=== PATIENT | female | born 1935 | race Caucasian/White ===

== ENCOUNTER 2017-02-24 18:33 | Inpatient (IN) | payer MEDICARE, MEDICAID ==
[~2017-02-24] VITALS: Ht 157.5 cm; Wt 48.5 kg
[2017-02-24 19:38] LABS: BASO # 0.1 x10^3/uL (0.0-0.2); BASO % 1 % (0-3); EOS # 0.2 x10^3/uL (0.0-0.7); EOS % 2 % (0-3); HEMATOCRIT 38.3 % (36.0-47.0); LYMPH # 3.8 x10^3/uL (1.0-4.8); LYMPH % 45 % (24-48); MEAN CORPUSCULAR HEMOGLOBIN 29 pg (25-35); MEAN CORPUSCULAR HGB CONC 34 g/dL (31-37); MEAN CORPUSCULAR VOLUME 86 fL (79-100); MONO # 0.8 x10^3/uL (0.0-1.1); MONO % 10 % (0-9); NEUT # 3.7 x10^3uL (1.8-7.7); NEUT % 43 % (31-73); PLATELET COUNT 223 x10^3/uL (140-400); RED BLOOD COUNT 4.47 x10^6/uL (3.50-5.40); RED CELL DISTRIBUTION WIDTH 12.8 % (11.5-14.5); WHITE BLOOD COUNT 8.5 x10^3/uL (4.0-11.0)
[2017-02-24 19:48] LABS: CALCIUM 8.6 mg/dL (8.5-10.1); CREATININE 1.1 mg/dL (0.6-1.0); GFR 47.7; MAGNESIUM 2.1 mg/dL (1.8-2.4); POTASSIUM 3.5 mmol/L (3.5-5.1)
--- NOTE | 2017-02-24 19:49 | PHYS DOC ---
Adult General Chief Complaint Chief Complaint: PSYCH EVALUATION HPI HPI Patient is a 81 year old female who presents for geropsychiatric evaluation. The patient was transferred to the emergency department from her assisted due to increasing confusion. Patient has history of vascular dementia and COPD. The patient has no complaints at this time. The patient is currently oriented only to herself. Patient has had no reports of fever, vomiting, difficulty with breathing, chest pain, or loose stools. The patient was transferred here for medical clearance before admission to the geropsychiatric unit here at [facility]. Review of Systems Review of Systems Constitutional: Denies fever or chills [] Eyes: Denies change in visual acuity, redness, or eye pain [] HENT: Denies nasal congestion or sore throat [] Respiratory: Denies cough or shortness of breath [] Cardiovascular: Denies chest pain or edema [] GI: Denies abdominal pain, nausea, vomiting, bloody stools or diarrhea [] : Denies dysuria or hematuria [] Musculoskeletal: Denies back pain or joint pain [] Integument: Denies rash or skin lesions [] Neurologic: Denies headache, focal weakness or sensory changes [] Physical Exam Physical Exam Constitutional: Alert, afebrile, no acute distress. [] HENT: Normocephalic, atraumatic, bilateral external ears normal, oropharynx moist, no oral exudates, nose normal. [] Eyes: PERRLA, EOMI, conjunctiva normal, no discharge. [] Neck: Normal range of motion, no tenderness, supple, no stridor. [] Cardiovascular:Heart rate regular rhythm, no murmur [] Lungs & Thorax: Bilateral breath sounds clear to auscultation [] Abdomen: Bowel sounds normal, soft, no tenderness, no masses, no pulsatile masses. [] Skin: Warm, dry, no erythema, no rash. [] Back: No tenderness, no CVA tenderness. [] Extremities: No tenderness, no cyanosis, no clubbing, ROM intact, no edema. [] Neurologic: Alert, oriented to self only, normal motor function, normal sensory function, no focal deficits noted. [] Current Patient Data Lab Results Laboratory Tests Test 02/24/17 19:25 White Blood Count 8.5 x10^3/uL (4.0-11.0) Red Blood Count 4.47 x10^6/uL (3.50-5.40) Hemoglobin 13.0 g/dL (12.0-15.5) Hematocrit 38.3 % (36.0-47.0) Mean Corpuscular Volume 86 fL (79-100) Mean Corpuscular Hemoglobin 29 pg (25-35) Mean Corpuscular Hemoglobin Concent 34 g/dL (31-37) Red Cell Distribution Width 12.8 % (11.5-14.5) Platelet Count 223 x10^3/uL (140-400) Neutrophils (%) (Auto) 43 % (31-73) Lymphocytes (%) (Auto) 45 % (24-48) Monocytes (%) (Auto) 10 % (0-9) H Eosinophils (%) (Auto) 2 % (0-3) Basophils (%) (Auto) 1 % (0-3) Neutrophils # (Auto) 3.7 x10^3uL (1.8-7.7) Lymphocytes # (Auto) 3.8 x10^3/uL (1.0-4.8) Monocytes # (Auto) 0.8 x10^3/uL (0.0-1.1) Eosinophils # (Auto) 0.2 x10^3/uL (0.0-0.7) Basophils # (Auto) 0.1 x10^3/uL (0.0-0.2) EKG EKG Interpreted by me: Heart rate 91, sinus rhythm, normal intervals, leftward axis , no acute ST/T-wave abnormalities present [] Radiology/Procedures Radiology/Procedures Not performed [] Course & Med Decision Making Course & Med Decision Making Pertinent Labs and Imaging studies reviewed. (See chart for details) Patient's lab work shows evidence of mild dehydration, however is otherwise unremarkable. The patient is medically cleared for geropsychiatric admission. Dragon Disclaimer Dragon Disclaimer This chart was dictated in whole or in part using Voice Recognition software in a busy, high-work load, and often noisy Emergency Department environment. It may contain unintended and wholly unrecognized errors or omissions. Departure Departure: Impression: Primary Impression: Medical clearance for psychiatric admission Disposition: ADMITTED INPATIENT Admitting Physician: Other Condition: STABLE MARY HELTON MD Feb 24, 2017 19:49
[2017-02-24 20:19] LABS: BILIRUBIN,URINE NEG (NEG); CLARITY,URINE HAZY; COLOR,URINE YELLOW; GLUCOSE,URINE NEG (NEG)
[2017-02-24 20:20] LABS: BACTERIA,URINE 0 /HPF (0-FEW); NITRITE,URINE NEG (NEG); SQUAMOUS EPITHELIAL CELL,UR FEW /LPF; UROBILINOGEN,URINE 0.2 mg/dL (0.2 mg/dL)
[2017-02-24 20:22] LABS: HYALINE CASTS, URINE FEW /HPF
[2017-02-24] MEDS ORDERED: PREN1TAB27 PO (22:16)
[2017-02-24] MEDS ORDERED: SERT25TA PO (22:16)
[2017-02-24] MEDS ORDERED: OLAN5TAB3 PO (22:16)
[2017-02-24] MEDS ORDERED: DONE5TAB56 PO (22:16)
[2017-02-24] MEDS ORDERED: ACET325T9 PO (22:16)
[2017-02-24] MEDS ORDERED: MAG HYDROX/AL HYDROX/SIMETH 30 ML ORAL.SUSP PO PRN (22:30)
[2017-02-24] MEDS ORDERED: MAGNESIUM HYDROXIDE 2,400 MG/30 ML ORAL.SUSP. PO PRN (22:30)
[2017-02-24] MEDS ORDERED: ACETAMINOPHEN 325 MG TABLET PO PRN ×2 (22:30→23:45)
[2017-02-24] MEDS ORDERED: METHYL SALICYLATE/MENTHOL TOPICAL OINTMENT 29GM TUBE. TP PRN (22:30)
--- NOTE | 2017-02-24 22:46 | EKG ---
[address] [address] Test Date: 2017-02-24 Test Time: 19:05:35 Pat Name: SU SANDHU Department: Room: [facility] 1 Gender: F Bench Hand: : 1935 Requested By: MARY HELTON Order Number: [id number] Reading MD: Doroteo Sanders Measurements Intervals [place] Rate: 91 P: 38 AK: 132 QRS: -13 QRSD: 84 T: 82 QT: 390 QTc: 488 Interpretive Statements SINUS RHYTHM LEFTWARD AXIS LVH WITH REPOLARIZATION ABNORMALITY NONSPECIFIC ST-T WAVE CHANGES. PROLONGED QT RI6.01 Unconfirmed report No previous ECG available for comparison Electronically Signed On 02-28-2017 10:40:36 CDT by Doroteo Sanders
[2017-02-24] MEDS: OLANZapine 5 MG TABLET PO SCH (22:48)
[2017-02-24] MEDS: SERTRALINE 25 MG TABLET. PO SCH (22:48)
[2017-02-25 01:29] VITALS: BP 150/80
[2017-02-25 06:21] VITALS: BP 148/78
[2017-02-25] MEDS: DONEPEZIL HCL 5 MG TABLET. PO SCH (07:39)
[2017-02-25] MEDS: PRENATAL MULTIVITAMIN TABLET. PO SCH (07:39)
[2017-02-25 12:11] LABS: THYROID STIM HORMONE (TSH) 3.79 uIU/mL (0.358-3.740)
[2017-02-25 16:31] VITALS: BP 128/72
[2017-02-25] MEDS: SERTRALINE 25 MG TABLET. PO SCH (19:36)
[2017-02-25] MEDS: MIRTAZAPINE 7.5 MG TABLET. PO SCH (19:36)
[2017-02-25] MEDS: OLANZapine 5 MG TABLET PO SCH (19:36)
--- NOTE | 2017-02-25 20:03 | HP ---
ADMIT DATE: 02/24/2017 PSYCHIATRIC ADMISSION HISTORY/EVALUATION IDENTIFYING DATA: The patient is an 81-year-old female referred to us from [facility] by Dr. Jd Donovan, her primary care physician, on account of increasing psychotic symptoms, being delusional, aggressive after the patient grabbed a staff member. She has been increasingly anxious, obsessive, does have a diagnosis of vascular dementia with behavioral disturbances, refusing all her psychotropics. She has had outburst attempted to elopement, she grabbed ____ and attempted to attack staff with it. She has failed outpatient psychiatric interventions. CHIEF COMPLAINT: "No, I don't do that." HISTORY OF PRESENT ILLNESS: The patient has a history of increasing psychotic symptoms, confusion, mood swings. She does have a diagnosis of vascular dementia. No clear history of bipolar disorder or active suicidal ideation. She is extremely obsessive, repetitive. PAST PSYCHIATRIC HISTORY: As above. MEDICAL HISTORY: Hypertension, COPD. FAMILY HISTORY: Noncontributory. DIET: Regular. No milk. CODE STATUS: Full code. Ambulates independently. CURRENT PSYCHOTROPICS: Aricept 5 mg a day, Zyprexa 5 mg at bedtime, Zoloft 25 mg a day. FAMILY HISTORY: Noncontributory. SOCIAL HISTORY: No alcohol, drug abuse, physical, sexual or elder abuse history is noted. She is not known to be a perpetrator. MENTAL STATUS EXAMINATION: Oriented to herself and situation at times. Speech is coherent, abstraction fair, computation impaired, language function intact, attention span short. Mood and affect somewhat labile. LABORATORY DATA: Reviewed. IMPRESSION: Psychotic disorder, unspecified, rule out bipolar 1 disorder mixed episode, major neurocognitive disorder, probably vascular with delusion, depression, anxiety disorder, unspecified; impulse control disorder, unspecified. Rest diagnoses as above. PLAN: Admit to the geropsychiatry unit at [facility]. I will see the patient daily individually. She slept just 5 hours last night. We will start Remeron 7.5 at bedtime. Continue rest of the psychotropics, medical followup with Dr. Bautista/Dr. Moctezuma. We will proceed with routine admission labs and further adjustments will be made and psychotropics depending on her progress. MAN Juan David MARCUS MD DR: MARY/pierre JOB#: [id number] / [id number]
--- NOTE | 2017-02-25 20:57 | PDOC ---
Exam Dionisio Demential Exam: Dionisio Note: Please also refer to the separate dictated note~for this date of service dictated separately.~Patient seen individually. Discussed the patient with Nursing staff reviewed the chart.~Reviewed interim history and current functioning. Reviewed vital signs,~Labs/ Radiology~and current medications noted below. Continue current treatment with the changes noted in the dictated addendum note Assessment: Vital Signs: Vital Signs Date Time Temp Pulse Resp B/P (MAP) Pulse Ox O2 Delivery O2 Flow Rate FiO2 02/25/17 16:31 98.4 67 16 128/72 (90) 94 02/24/17 21:00 Room Air I&O Intake and Output 02/25/17 07:00 Intake Total 50 ml Balance 50 ml Intake Oral 50 ml Current Medications: Meds: Current Medications Acetaminophen (Tylenol) 650 mg PRN Q6HRS PRN PO PAIN / TEMP; Start 02/24/17 at 22:30; Stop 02/25/17 at 18:22; Status DC Multi-Ingredient Ointment (Analgesic [place]) 1 rich PRN QID PRN TP MUSCLE PAIN; Start 02/24/17 at 22:30 Al Hydroxide/Mg Hydroxide (Mylanta Plus Xs) 15 ml PRN AFTMEALHC PRN PO DYSPEPSIA; Start 02/24/17 at 22:30 Magnesium Hydroxide (Milk Of Magnesia) 2,400 mg PRN QHS PRN PO CONSTIPATION; Start 02/24/17 at 22:30 Donepezil HCl (Aricept) 5 mg DAILY PO Last administered on 02/25/17 07:39; Start 02/25/17 at 09:00 Olanzapine (ZyPREXA) 5 mg QHS PO Last administered on 02/25/17 19:36; Start at 23:00 Sertraline HCl (Zoloft) 25 mg QHS PO Last administered on 02/25/17 19:36; Start 02/24/17 at 23:00 Acetaminophen (Tylenol) 650 mg PRN Q4HRS PRN PO PAIN / TEMP; Start 02/24/17 at 23:45 Prenat Multivit/ Teletype Technician/Iron/Folic Ac (Multivitamin ) 1 tab DAILY PO Last administered on 02/25/17 07:39; Start 02/25/17 at 09:00 Mirtazapine (Remeron) 7.5 mg QHS PO Last administered on 02/25/17t 19:36; Start 02/25/17 at 21:00 Active Scripts Active Reported Tylenol (Acetaminophen) 325 Mg Tablet 650 Mg PO PRN Q4HRS PRN Zoloft (Sertraline Hcl) 25 Mg Tablet 25 Mg PO QHS Zyprexa (Olanzapine) 5 Mg Tablet 5 Mg PO QHS Tablet ( Vit/Iron Fumarate/Fa) 1 Each Tablet 1 Tab PO DAILY Aricept (Donepezil Hcl) 5 Mg Tablet 5 Mg PO DAILY Diagnosis: Problems: (1) Anxiety disorder (2) Dementia, vascular, with delusions (3) Dementia, vascular, with depression (4) Impulse control disorder (5) Dementia in Alzheimer's disease with delusions (6) Dementia in Alzheimer's disease with depression BATSHEVA MARCUS MD Feb 25, 2017 20:57
[2017-02-25 22:07] LABS: T3 TOTAL 110 ng/dL (71-180); THYROXINE 7.2 ug/dL (4.5-12.0)
--- NOTE | 2017-02-26 02:31 | ACF ---
Admission Criteria Forms PSYCHIATRIC DISORDERS Clinical Indications for Inpatient Care (Place 'X' for any and all applicable criteria): Ongoing inpatient care may be needed for 1 or more of the following(1)(2)(3)(4)( 6)(7)(8): [ ]I. Danger to self or others not manageable at lower level of care. [ ]II. Grave disability (eg, inability to perform self care necessary at lower level of care) [ ]III. Agitation or inappropriate behavior interfering with care for primary condition (eg, attempting to discontinue lines or drains prematurely, unable to cooperate with respiratory care) [X]IV. Severe disability or disorder indicated by ALL of the following: [X]a) Severe behavioral health disorder-related symptoms or condition indicated by 1 or more of the following: [ ]i) Severe problem with cognition, memory, judgment, or impulse control [X]ii) Severe clinical manifestations (eg, hallucinations, delusions, other acute psychotic symptoms, song, extreme agitation or anxiety) [X]b) Patient management at lower level of care is not feasible until acute intervention or modification is initiated. Extended stay beyond goal length of stay for the primary condition may be needed untilALLof the following are present(1)(2)(3)(4)(722)(23): [ ]a) Danger to self or others is absent or manageable at lower level of care [ ]b) Behavior crisis management, including physical or chemical restraints, is required and is not available at a lower level of care. [ ]c) Behavioral symptoms (e.g., agitation, somnolence, inappropriate behavior) are present, and are not manageable at a lower level of care. [ ]d) Patient cannot understand follow-up treatment and crisis plan. [ ]e) Provider and supports are sufficiently available at lower level of care. [ ]f) Patient can participate (e.g., verify absence of plan for harm) and is in needed of monitoring. The original [facility] content created by [facility] has been revised. The portions of the content which have been revised are identified through the use of italic text, and [employer] has neither reviewed nor approved the modified material. All other unmodified content is copyright [facility] [employer]. Please see references footnoted in the original [facility] edition 2015 Admission Criteria Met?: Yes ANGE GREENE Feb 26, 2017 02:31
[2017-02-26 03:20] LABS: HEMOGLOBIN A1C 5.9 % (4.8-5.6)
[2017-02-26 06:17] VITALS: BP 146/74
[2017-02-26] MEDS: PRENATAL MULTIVITAMIN TABLET. PO SCH (09:00)
[2017-02-26] MEDS: DONEPEZIL HCL 5 MG TABLET. PO SCH (09:00)
--- NOTE | 2017-02-26 13:20 | HP ---
ADMIT DATE: 02/25/2017 MEDICAL HISTORY AND PHYSICAL REASON FOR ADMISSION TO THE SENIOR BEHAVIORAL UNIT: This is an 81-year-old female who came from [facility] in [place], [place], where she has been aggressive, grabbing staff, having outbursts, and attempted elopement. PAST MEDICAL HISTORY: Psychotic disorder with delusions, anxiety, OCD, vascular dementia with behavior disturbance, COPD, hypertension, personality disorder. She has been falling. ALLERGIES: PENICILLIN, SULFA, CODEINE, HYDROCODONE, MEPERIDINE, MILK, AND PAROXETINE. MEDICATIONS: Reviewed. She on 01/04/2017, Aricept 5 mg was added. No other medication changes. She is barely on any medications ____. SOCIAL HISTORY: The patient states she never smoked or drank. 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 Someone told her to go be a doctor, and she told me she was a doctor. She resides in the nursing facility currently. REVIEW OF SYSTEMS: The patient states I have no medical problems and nothing is bothering me: PHYSICAL EXAMINATION: VITAL SIGNS: Blood pressure 146/74, pulse 69, respirations 16, pulse ox 97% on room air, temperature 97.1, height 62 inches, weight 105.6 pounds, BMI is 19.2. GENERAL: Pleasant elderly female in no acute distress. The patient was calm and cooperative throughout and was able to follow directions. HEENT: Her hearing is normal. Her pupils are equal, round, react to light. Extraocular muscles were intact. Her nose was patent. Her throat was clear. NECK: Supple. There were no carotid bruits. LUNGS: Clear to auscultation. CARDIOVASCULAR: Regular rhythm and rate. ABDOMEN: Soft, nontender. EXTREMITIES: Without edema. NEUROLOGIC: Cranial nerves are intact. She was able to cooperate. She had a little bit of trouble with a [id number]. LABORATORY DATA: Normal CBC. Her iron is 43. She has elevated hyperlipidemia, low vitamin D, and a slightly elevated TSH without depressed T4, BUN is 33, and creatinine is 1.1. ASSESSMENT: Mild iron deficiency, hyperlipidemia, dementia with delusions, low vitamin D, possible urinary tract infection, 5 to 10 white cells. PLAN: Follow along with Dr. Patrick. Treat her medical conditions. KRISSY ESPAZRA DO DR: Dylan JOB#: [id number] / [id number]
[2017-02-26] MEDS: CHOLECALCIFEROL (VITAMIN D3) 1,000 UNIT TABLET PO SCH ×2 (17:00→18:17)
[2017-02-26] MEDS: SERTRALINE 25 MG TABLET. PO SCH (19:23)
[2017-02-26] MEDS: MIRTAZAPINE 7.5 MG TABLET. PO SCH (19:23)
[2017-02-26] MEDS: OLANZapine 5 MG TABLET PO SCH (19:24)
[2017-02-26] MEDS: ATORVASTATIN CALCIUM 20 MG TABLET PO SCH (19:57)
--- NOTE | 2017-02-26 22:45 | PDOC ---
Exam Dionisio Demential Exam: Dionisio Note: Please also refer to the separate dictated note~for this date of service dictated separately.~Patient seen individually. Discussed the patient with Nursing staff reviewed the chart.~Reviewed interim history and current functioning. Reviewed vital signs,~Labs/ Radiology~and current medications noted below. Continue current treatment with the changes noted in the dictated addendum note Assessment: Vital Signs: Vital Signs Date Time Temp Pulse Resp B/P (MAP) Pulse Ox O2 Delivery O2 Flow Rate FiO2 02/26/17 06:17 97.1 69 16 146/74 (98) 97 02/24/17 21:00 Room Air I&O Intake and Output 02/26/17 07:00 Intake Total 240 ml Balance 240 ml Intake Oral 240 ml # Bowel Movements 1 Current Medications: Meds: Current Medications Acetaminophen (Tylenol) 650 mg PRN Q6HRS PRN PO PAIN / TEMP; Start 02/24/17 at 22:30; Stop 02/25/17 at 18:22; Status DC Multi-Ingredient Ointment (Analgesic [place]) 1 rich PRN QID PRN TP MUSCLE PAIN; Start 02/24/17 at 22:30 Al Hydroxide/Mg Hydroxide (Mylanta Plus Xs) 15 ml PRN AFTMEALHC PRN PO DYSPEPSIA; Start 02/24/17 at 22:30 Magnesium Hydroxide (Milk Of Magnesia) 2,400 mg PRN QHS PRN PO CONSTIPATION; Start 02/24/17 at 22:30 Donepezil HCl (Aricept) 5 mg DAILY PO Last administered on 02/26/17 09:00; Start 02/25/17 at 09:00 Olanzapine (ZyPREXA) 5 mg QHS PO Last administered on 02/26/17 19:24; Start at 23:00; Stop 02/27/17 at 21:00 Sertraline HCl (Zoloft) 25 mg QHS PO Last administered on 02/26/17 19:23; Start 02/24/17 at 23:00 Acetaminophen (Tylenol) 650 mg PRN Q4HRS PRN PO PAIN / TEMP; Start 02/24/17 at 23:45 Prenat Multivit/ [place]/Iron/Folic Ac (Multivitamin ) 1 tab DAILY PO Last administered on 02/26/17 09:00; Start 02/25/17 at 09:00 Mirtazapine (Remeron) 7.5 mg QHS PO Last administered on 02/26/17t 19:23; Start 02/25/17 at 21:00 Atorvastatin Calcium (Lipitor) 20 mg QHS PO ; Start 02/26/17 at 21:00 Vitamin D (Vitamin D3) 2,000 unit DAILYBFRSUP PO ; Start 02/26/17 at 17:00 Risperidone (RisperDAL) 0.25 mg QHS PO ; Start 02/27/17 at 21:00 Active Scripts Active Reported Tylenol (Acetaminophen) 325 Mg Tablet 650 Mg PO PRN Q4HRS PRN Zoloft (Sertraline Hcl) 25 Mg Tablet 25 Mg PO QHS Zyprexa (Olanzapine) 5 Mg Tablet 5 Mg PO QHS Tablet ( Vit/Iron Fumarate/Fa) 1 Each Tablet 1 Tab PO DAILY Aricept (Donepezil Hcl) 5 Mg Tablet 5 Mg PO DAILY Diagnosis: Problems: (1) Anxiety disorder (2) Dementia, vascular, with delusions (3) Dementia, vascular, with depression (4) Impulse control disorder (5) Dementia in Alzheimer's disease with delusions (6) Dementia in Alzheimer's disease with depression BATSHEVA MARCUS MD Feb 26, 2017 22:45
[2017-02-27 06:46] VITALS: BP 128/72
[2017-02-27] MEDS: DONEPEZIL HCL 5 MG TABLET. PO SCH (08:17)
[2017-02-27] MEDS: CHOLECALCIFEROL (VITAMIN D3) 1,000 UNIT TABLET PO SCH (08:18)
[2017-02-27] MEDS: PRENATAL MULTIVITAMIN TABLET. PO SCH (08:18)
[2017-02-27 16:36] VITALS: BP 124/56
[2017-02-27] MEDS: SERTRALINE 25 MG TABLET. PO SCH (19:31)
[2017-02-27] MEDS: OLANZapine 5 MG TABLET PO SCH (19:32)
[2017-02-27] MEDS: ATORVASTATIN CALCIUM 20 MG TABLET PO SCH (19:32)
[2017-02-27] MEDS: MIRTAZAPINE 7.5 MG TABLET. PO SCH (19:32)
[2017-02-27] MEDS: risperiDONE 0.25 MG TABLET. PO SCH (19:32)
--- NOTE | 2017-02-27 21:22 | PDOC ---
Exam Dionisio Demential Exam: Dionisio Note: Please also refer to the separate dictated note~for this date of service dictated separately.~Patient seen individually. Discussed the patient with Nursing staff reviewed the chart.~Reviewed interim history and current functioning. Reviewed vital signs,~Labs/ Radiology~and current medications noted below. Continue current treatment with the changes noted in the dictated addendum note Assessment: Vital Signs: Vital Signs Date Time Temp Pulse Resp B/P (MAP) Pulse Ox O2 Delivery O2 Flow Rate FiO2 02/27/17 16:36 97.7 65 18 124/56 (78) 96 Room Air I&O Intake and Output 02/27/17 07:00 Intake Total 780 ml Balance 780 ml Intake Oral 780 ml Current Medications: Meds: Current Medications Acetaminophen (Tylenol) 650 mg PRN Q6HRS PRN PO PAIN / TEMP; Start 02/24/17 at 22:30; Stop 02/25/17 at 18:22; Status DC Multi-Ingredient Ointment (Analgesic [place]) 1 rich PRN QID PRN TP MUSCLE PAIN; Start 02/24/17 at 22:30 Al Hydroxide/Mg Hydroxide (Mylanta Plus Xs) 15 ml PRN AFTMEALHC PRN PO DYSPEPSIA; Start 02/24/17 at 22:30 Magnesium Hydroxide (Milk Of Magnesia) 2,400 mg PRN QHS PRN PO CONSTIPATION; Start 02/24/17 at 22:30 Donepezil HCl (Aricept) 5 mg DAILY PO Last administered on 02/27/17 08:17; Start 02/25/17 at 09:00 Olanzapine (ZyPREXA) 5 mg QHS PO Last administered on 02/26/17 19:24; Start at 23:00; Stop 02/27/17 at 21:00; Status DC Sertraline HCl (Zoloft) 25 mg QHS PO Last administered on 02/27/17 19:31; Start 02/24/17 at 23:00 Acetaminophen (Tylenol) 650 mg PRN Q4HRS PRN PO PAIN / TEMP; Start 02/24/17 at 23:45 Prenat Multivit/ Welding Systems And Equipment Repairer/Iron/Folic Ac (Multivitamin ) 1 tab DAILY PO Last administered on 02/27/17 08:18; Start 02/25/17 at 09:00 Mirtazapine (Remeron) 7.5 mg QHS PO Last administered on 02/27/17 19:32; Start 02/25/17 at 21:00 Atorvastatin Calcium (Lipitor) 20 mg QHS PO Last administered on 02/27/17 19: 32; Start 02/26/17 at 21:00 Vitamin D (Vitamin D3) 2,000 unit DAILYBFRSUP PO Last administered on 08:18; Start 02/26/17 at 17:00 Risperidone (RisperDAL) 0.25 mg QHS PO Last administered on 02/27/17 19:32; Start 02/27/17 at 21:00 Active Scripts Active Reported Tylenol (Acetaminophen) 325 Mg Tablet 650 Mg PO PRN Q4HRS PRN Zoloft (Sertraline Hcl) 25 Mg Tablet 25 Mg PO QHS Zyprexa (Olanzapine) 5 Mg Tablet 5 Mg PO QHS Tablet ( Vit/Iron Fumarate/Fa) 1 Each Tablet 1 Tab PO DAILY Aricept (Donepezil Hcl) 5 Mg Tablet 5 Mg PO DAILY Diagnosis: Problems: (1) Anxiety disorder (2) Dementia, vascular, with delusions (3) Dementia, vascular, with depression (4) Impulse control disorder (5) Dementia in Alzheimer's disease with delusions (6) Dementia in Alzheimer's disease with depression BATSHEVA MARCUS MD Feb 27, 2017 21:22
--- NOTE | 2017-02-28 01:08 | PN ---
DATE: 02/26/2017 This late entry 02/26/2017 covers elements not covered in my initial note. SUBJECTIVE: Per nursing report, the patient appears quite confused, however, as I met with her, she seemed to be feigning some of her memory deficits. When I persisted sitting with her in her room, she was able to tell me it was 02/2017, amongst other things indicating some short-term memory deficits, but certainly not as confused as she initially appeared. She slept 10 hours previous night, remains somewhat paranoid, suspicious, noncompliant with medications, refused breakfast, lunch, paranoid that there were bugs in her ____. REVIEW OF SYSTEMS: No CV, , pulmonary, eye, ENT system symptoms on review. Reliability poor. MENTAL STATUS EXAM: Oriented to herself and situation. Speech is coherent, abstraction fair, computation impaired, language function intact. Mood and affect somewhat labile at times. As I was questioning the patient individually in her room. Initially, she said she did not remember her last name. When I reminded her it was [place], she said "yes like the shoes." IMPRESSION: Bipolar 1 disorder, mixed with psychotic features versus major depressive disorder with psychotic features; cognitive disorder, unspecified. PLAN: Maintain Aricept 5 mg a day, change Zyprexa 5 mg at bedtime, do Risperdal 0.5 mg at bedtime. Continue Zoloft 25 mg a day, Remeron 7.5 mg at bedtime. Adjust further as clinically indicated. BATSHEVA MARCUS MD DR: MARY/pierre JOB#: [id number] / [id number]
--- NOTE | 2017-02-28 02:00 | PN ---
DATE: 02/27/2017 PSYCHIATRIC PROGRESS NOTE This note covers elements not covered in my initial note of 02/27/2017. SUBJECTIVE: The patient was seen individually evening of 02/27/2017. Discussed with nursing staff. Per nursing report, the patient takes her medications in coffee. She is pleasant, cooperative, took a shower, which is an improvement. I met with her in her room this evening. REVIEW OF SYSTEMs: No CV, , pulmonary, eye, ENT system symptoms on review. Reliability poor. MENTAL STATUS EXAM: Oriented to herself and situation. Speech is coherent, abstraction fair, computation impaired. No suicidal or homicidal ideation and less delusional. LABORATORY DATA: Reviewed. IMPRESSION: Psychotic disorder, unspecified; major depressive disorder with psychotic features. Rule out bipolar 1 mixed with psychotic features; cognitive disorder, unspecified. PLAN: Continue psychotropics mentioned in my initial note including Aricept, Risperdal, Zoloft, and Remeron. Adjust as clinically indicated. BATSHEVA MARCUS MD DR: MARY/pierre JOB#: [id number] / [id number]
[2017-02-28 06:25] VITALS: BP 130/74
[2017-02-28] MEDS: DONEPEZIL HCL 5 MG TABLET. PO SCH (08:24)
[2017-02-28] MEDS: PRENATAL MULTIVITAMIN TABLET. PO SCH (08:24)
[2017-02-28] MEDS: CHOLECALCIFEROL (VITAMIN D3) 1,000 UNIT TABLET PO SCH (16:48)
[2017-02-28 16:52] VITALS: BP 111/61
[2017-02-28] MEDS: MIRTAZAPINE 7.5 MG TABLET. PO SCH (20:39)
[2017-02-28] MEDS: risperiDONE 0.25 MG TABLET. PO SCH (20:39)
[2017-02-28] MEDS: SERTRALINE 25 MG TABLET. PO SCH (20:39)
[2017-02-28] MEDS: ATORVASTATIN CALCIUM 20 MG TABLET PO SCH (20:39)
--- NOTE | 2017-02-28 22:48 | PDOC ---
Exam Dionisio Demential Exam: Dionisio Note: Please also refer to the separate dictated note~for this date of service dictated separately.~Patient seen individually. Discussed the patient with Nursing staff reviewed the chart.~Reviewed interim history and current functioning. Reviewed vital signs,~Labs/ Radiology~and current medications noted below. Continue current treatment with the changes noted in the dictated addendum note Assessment: Vital Signs: Vital Signs Date Time Temp Pulse Resp B/P (MAP) Pulse Ox O2 Delivery O2 Flow Rate FiO2 02/28/17 16:52 99.1 89 18 111/61 (78) 96 02/27/17 16:36 Room Air I&O Intake and Output 02/28/17 07:00 Intake Total 900 ml Balance 900 ml Intake Oral 900 ml Current Medications: Meds: Current Medications Acetaminophen (Tylenol) 650 mg PRN Q6HRS PRN PO PAIN / TEMP; Start 02/24/17 at 22:30; Stop 02/25/17 at 18:22; Status DC Multi-Ingredient Ointment (Analgesic [place]) 1 rich PRN QID PRN TP MUSCLE PAIN; Start 02/24/17 at 22:30 Al Hydroxide/Mg Hydroxide (Mylanta Plus Xs) 15 ml PRN AFTMEALHC PRN PO DYSPEPSIA; Start 02/24/17 at 22:30 Magnesium Hydroxide (Milk Of Magnesia) 2,400 mg PRN QHS PRN PO CONSTIPATION; Start 02/24/17 at 22:30 Donepezil HCl (Aricept) 5 mg DAILY PO Last administered on 02/28/17 08:24; Start 02/25/17 at 09:00 Olanzapine (ZyPREXA) 5 mg QHS PO Last administered on 02/26/17 19:24; Start at 23:00; Stop 02/27/17 at 21:00; Status DC Sertraline HCl (Zoloft) 25 mg QHS PO Last administered on 02/28/17 20:39; Start 02/24/17 at 23:00 Acetaminophen (Tylenol) 650 mg PRN Q4HRS PRN PO PAIN / TEMP; Start 02/24/17 at 23:45 Prenat Multivit/ Flow Specialist/Iron/Folic Ac (Multivitamin ) 1 tab DAILY PO Last administered on 02/28/17 08:24; Start 02/25/17 at 09:00 Mirtazapine (Remeron) 7.5 mg QHS PO Last administered on 02/28/17 20:39; Start 02/25/17 at 21:00 Atorvastatin Calcium (Lipitor) 20 mg QHS PO Last administered on 02/28/17 20: 39; Start 02/26/17 at 21:00 Vitamin D (Vitamin D3) 2,000 unit DAILYBFRSUP PO Last administered on 16:48; Start 02/26/17 at 17:00 Risperidone (RisperDAL) 0.25 mg QHS PO Last administered on 02/28/17 20:39; Start 02/27/17 at 21:00 Lactase (Lactaid) 3,000 unit PRN Q3HRS PRN PO GI SYMPTOMS; Start 02/28/17 at 18 :00 Active Scripts Active Reported Tylenol (Acetaminophen) 325 Mg Tablet 650 Mg PO PRN Q4HRS PRN Zoloft (Sertraline Hcl) 25 Mg Tablet 25 Mg PO QHS Zyprexa (Olanzapine) 5 Mg Tablet 5 Mg PO QHS Tablet ( Vit/Iron Fumarate/Fa) 1 Each Tablet 1 Tab PO DAILY Aricept (Donepezil Hcl) 5 Mg Tablet 5 Mg PO DAILY Diagnosis: Problems: (1) Dementia in Alzheimer's disease with depression (2) Bipolar affective, mixed (3) Impulse control disorder (4) Anxiety disorder (5) Dementia, vascular, with delusions (6) Dementia, vascular, with depression (7) Dementia in Alzheimer's disease with delusions BATSHEVA MARCUS MD Feb 28, 2017 22:47
--- NOTE | 2017-03-01 00:37 | PN ---
DATE: PSYCHIATRIC PROGRESS NOTE SUBJECTIVE: The patient was seen on rounds the evening of 02/28/2017, discussed with nursing staff, reviewed the chart. This note covers the elements not covered in my initial note. The patient is compliant with her medications, somewhat helpful, less paranoid, delusional, wanting lactate p.r.n. and we will do this. No CV, , pulmonary, eye system symptoms on review. MENTAL STATUS EXAM: Oriented to herself and situation. Speech is coherent, has some latency. Abstraction fair, computation impaired, language function intact. Mood and affect appears less labile. LABORATORY DATA: Reviewed. IMPRESSION: Psychotic disorder, unspecified; bipolar 1 disorder, mixed with psychotic features; major neurocognitive disorder, Alzheimer, vascular with delusions, cognitive disorder, unspecified. PLAN: Maintain Risperdal 0.25 mg at bedtime, Aricept 5 mg a day, Zoloft 25 mg a day, Remeron 7.5 mg at bedtime. Adjust further as clinically indicated. MAN Juan David MARCUS MD DR: MARY/pierre JOB#: [id number] / [id number]
[2017-03-01 05:58] VITALS: BP 130/73
[2017-03-01] MEDS: DONEPEZIL HCL 5 MG TABLET. PO SCH (09:22)
[2017-03-01] MEDS: PRENATAL MULTIVITAMIN TABLET. PO SCH (09:22)
[2017-03-01 16:08] VITALS: BP 178/76
[2017-03-01] MEDS: CHOLECALCIFEROL (VITAMIN D3) 1,000 UNIT TABLET PO SCH (17:00)
--- NOTE | 2017-03-01 20:01 | PDOC ---
Exam Dionisio Demential Exam: Dionisio Note: Please also refer to the separate dictated note~for this date of service dictated separately.~Patient seen individually. Discussed the patient with Nursing staff reviewed the chart.~Reviewed interim history and current functioning. Reviewed vital signs,~Labs/ Radiology~and current medications noted below. Continue current treatment with the changes noted in the dictated addendum note Assessment: Vital Signs: Vital Signs Date Time Temp Pulse Resp B/P (MAP) Pulse Ox O2 Delivery O2 Flow Rate FiO2 03/01/17 16:08 98.6 81 20 178/76 (110) 97 03/01/17 05:58 Room Air I&O Intake and Output 03/01/17 07:00 Intake Total 840 ml Balance 840 ml Intake Oral 840 ml Current Medications: Meds: Current Medications Acetaminophen (Tylenol) 650 mg PRN Q6HRS PRN PO PAIN / TEMP; Start 02/24/17 at 22:30; Stop 02/25/17 at 18:22; Status DC Multi-Ingredient Ointment (Analgesic [place]) 1 rich PRN QID PRN TP MUSCLE PAIN; Start 02/24/17 at 22:30 Al Hydroxide/Mg Hydroxide (Mylanta Plus Xs) 15 ml PRN AFTMEALHC PRN PO DYSPEPSIA; Start 02/24/17 at 22:30 Magnesium Hydroxide (Milk Of Magnesia) 2,400 mg PRN QHS PRN PO CONSTIPATION; Start 02/24/17 at 22:30 Donepezil HCl (Aricept) 5 mg DAILY PO Last administered on 03/01/17 09:22; Start 02/25/17 at 09:00 Olanzapine (ZyPREXA) 5 mg QHS PO Last administered on 02/26/17 19:24; Start at 23:00; Stop 02/27/17 at 21:00; Status DC Sertraline HCl (Zoloft) 25 mg QHS PO Last administered on 02/28/17 20:39; Start 02/24/17 at 23:00 Acetaminophen (Tylenol) 650 mg PRN Q4HRS PRN PO PAIN / TEMP; Start 02/24/17 at 23:45 Prenat Multivit/ Instrument Repairer/Iron/Folic Ac (Multivitamin ) 1 tab DAILY PO Last administered on 6/20/17at 09:22; Start 02/25/17 at 09:00 Mirtazapine (Remeron) 7.5 mg QHS PO Last administered on 02/28/17 20:39; Start 02/25/17 at 21:00 Atorvastatin Calcium (Lipitor) 20 mg QHS PO Last administered on 02/28/17 20: 39; Start 02/26/17 at 21:00 Vitamin D (Vitamin D3) 2,000 unit DAILYBFRSUP PO Last administered on 17:00; Start 02/26/17 at 17:00 Risperidone (RisperDAL) 0.25 mg QHS PO Last administered on 02/28/17 20:39; Start 02/27/17 at 21:00; Stop 03/01/17 at 18:20; Status DC Lactase (Lactaid) 3,000 unit PRN Q3HRS PRN PO GI SYMPTOMS; Start 02/28/17 at 18 :00 Risperidone (RisperDAL) 0.5 mg QHS PO ; Start 03/01/17 at 21:00 Active Scripts Active Reported Tylenol (Acetaminophen) 325 Mg Tablet 650 Mg PO PRN Q4HRS PRN Zoloft (Sertraline Hcl) 25 Mg Tablet 25 Mg PO QHS Zyprexa (Olanzapine) 5 Mg Tablet 5 Mg PO QHS Tablet ( Vit/Iron Fumarate/Fa) 1 Each Tablet 1 Tab PO DAILY Aricept (Donepezil Hcl) 5 Mg Tablet 5 Mg PO DAILY Diagnosis: Problems: (1) Anxiety disorder (2) Dementia, vascular, with delusions (3) Dementia, vascular, with depression (4) Impulse control disorder (5) Dementia in Alzheimer's disease with delusions (6) Dementia in Alzheimer's disease with depression (7) Bipolar affective, mixed BATSHEVA MARCUS MD Mar 01, 2017 20:01
[2017-03-01] MEDS: MIRTAZAPINE 7.5 MG TABLET. PO SCH (20:05)
[2017-03-01] MEDS: ATORVASTATIN CALCIUM 20 MG TABLET PO SCH (20:05)
[2017-03-01] MEDS: SERTRALINE 25 MG TABLET. PO SCH (20:06)
[2017-03-01] MEDS: risperiDONE 0.5 MG TABLET. PO SCH (20:07)
--- NOTE | 2017-03-02 04:13 | PN ---
DATE: 03/01/2017 This note covers elements not covered in my initial of 03/01/2017. SUBJECTIVE: The patient was seen individually evening of 03/01/2017. Per nursing report, the patient has been paranoid about her medications, resistive, slept 7 hours. REVIEW OF SYSTEMS: No CV, , pulmonary, eye system symptoms on review. Reliability poor. MENTAL STATUS EXAM: Oriented to herself and situation. Speech is coherent, abstraction fair, computation impaired, language function intact. Attention span short. I had talked to her about her delusions about medications being given excessively to her. There is nothing I could say that would convince her, otherwise she is quite psychotic. LABORATORY DATA: Reviewed. IMPRESSION: Bipolar 1 disorder, mixed with psychotic features; psychotic disorder, unspecified; cognitive disorder, unspecified. PLAN: Continue psychotropics mentioned in my initial note, increase Risperdal from 0.25 mg at bedtime to 0.5 mg at bedtime. MAN Juan David MARCUS MD DR: MARY/pierre JOB#: [id number] / [id number]
[2017-03-02 05:01] VITALS: BP 145/78
[2017-03-02] MEDS: PRENATAL MULTIVITAMIN TABLET. PO SCH (08:18)
[2017-03-02] MEDS: DONEPEZIL HCL 5 MG TABLET. PO SCH (08:18)
[2017-03-02 16:08] VITALS: BP 160/81
[2017-03-02] MEDS: CHOLECALCIFEROL (VITAMIN D3) 1,000 UNIT TABLET PO SCH (16:32)
[2017-03-02] MEDS ORDERED: traZODone 50 MG TABLET. PO PRN (18:15)
[2017-03-02] MEDS: ATORVASTATIN CALCIUM 20 MG TABLET PO SCH (20:21)
[2017-03-02] MEDS: MIRTAZAPINE 15 MG TABLET PO SCH (20:22)
[2017-03-02] MEDS: SERTRALINE 25 MG TABLET. PO SCH (20:22)
[2017-03-02] MEDS: risperiDONE 0.5 MG TABLET. PO SCH (20:22)
--- NOTE | 2017-03-02 20:24 | PDOC ---
Exam Dionisio Demential Exam: Dionisio Note: Please also refer to the separate dictated note~for this date of service dictated separately.~Patient seen individually. Discussed the patient with Nursing staff reviewed the chart.~Reviewed interim history and current functioning. Reviewed vital signs,~Labs/ Radiology~and current medications noted below. Continue current treatment with the changes noted in the dictated addendum note Assessment: Vital Signs: Vital Signs Date Time Temp Pulse Resp B/P (MAP) Pulse Ox O2 Delivery O2 Flow Rate FiO2 03/02/17 16:08 98.1 76 16 160/81 (107) 96 Room Air I&O Intake and Output 03/02/17 07:00 Intake Total 1080 ml Balance 1080 ml Intake Oral 1080 ml # Voids 1 Current Medications: Meds: Current Medications Acetaminophen (Tylenol) 650 mg PRN Q6HRS PRN PO PAIN / TEMP; Start 02/24/17 at 22:30; Stop 02/25/17 at 18:22; Status DC Multi-Ingredient Ointment (Analgesic [place]) 1 rich PRN QID PRN TP MUSCLE PAIN; Start 02/24/17 at 22:30 Al Hydroxide/Mg Hydroxide (Mylanta Plus Xs) 15 ml PRN AFTMEALHC PRN PO DYSPEPSIA; Start 02/24/17 at 22:30 Magnesium Hydroxide (Milk Of Magnesia) 2,400 mg PRN QHS PRN PO CONSTIPATION; Start 02/24/17 at 22:30 Donepezil HCl (Aricept) 5 mg DAILY PO Last administered on 03/02/17 08:18; Start 02/25/17 at 09:00 Olanzapine (ZyPREXA) 5 mg QHS PO Last administered on 02/26/17 19:24; Start at 23:00; Stop 02/27/17 at 21:00; Status DC Sertraline HCl (Zoloft) 25 mg QHS PO Last administered on 03/02/17 20:22; Start 02/24/17 at 23:00 Acetaminophen (Tylenol) 650 mg PRN Q4HRS PRN PO PAIN / TEMP; Start 02/24/17 at 23:45 Prenat Multivit/ Graduate Studies Dean/Iron/Folic Ac (Multivitamin ) 1 tab DAILY PO Last administered on 03/02/17 08:18; Start 02/25/17 at 09:00 Mirtazapine (Remeron) 7.5 mg QHS PO Last administered on 03/01/17 20:05; Start 02/25/17 at 21:00; Stop 03/02/17 at 18:17; Status DC Atorvastatin Calcium (Lipitor) 20 mg QHS PO Last administered on 03/02/17 20: 21; Start 02/26/17 at 21:00 Vitamin D (Vitamin D3) 2,000 unit DAILYBFRSUP PO Last administered on 16:32; Start 02/26/17 at 17:00 Risperidone (RisperDAL) 0.25 mg QHS PO Last administered on 02/28/17 20:39; Start 02/27/17 at 21:00; Stop 03/01/17 at 18:20; Status DC Lactase (Lactaid) 3,000 unit PRN Q3HRS PRN PO GI SYMPTOMS; Start 02/28/17 at 18 :00 Risperidone (RisperDAL) 0.5 mg QHS PO Last administered on 03/02/17 20:22; Start 03/01/17 at 21:00 Mirtazapine (Remeron) 15 mg QHS PO Last administered on 03/02/17 20:22; Start 03/02/17 at 21:00 Trazodone HCl (Desyrel) 50 mg PRN QHS PRN PO INSOMNIA, MAY REPEAT X1; Start at 18:15 Active Scripts Active Reported Tylenol (Acetaminophen) 325 Mg Tablet 650 Mg PO PRN Q4HRS PRN Zoloft (Sertraline Hcl) 25 Mg Tablet 25 Mg PO QHS Zyprexa (Olanzapine) 5 Mg Tablet 5 Mg PO QHS Tablet ( Vit/Iron Fumarate/Fa) 1 Each Tablet 1 Tab PO DAILY Aricept (Donepezil Hcl) 5 Mg Tablet 5 Mg PO DAILY Diagnosis: Problems: (1) Anxiety disorder (2) Dementia, vascular, with delusions (3) Dementia, vascular, with depression (4) Impulse control disorder (5) Dementia in Alzheimer's disease with delusions (6) Dementia in Alzheimer's disease with depression (7) Bipolar affective, mixed BATSHEVA MARCUS MD Mar 02, 2017 20:24
--- NOTE | 2017-03-03 01:13 | PN ---
DATE: 03/02/2017 PSYCHIATRIC PROGRESS NOTE This note covers elements not covered in my initial note. SUBJECTIVE: I met with the patient evening of 03/02/2017. Per nursing staff, the patient slept just 1-1/2 hours. Last evening, she was quite bizarre said she did not want to sleep because she felt she would , complaint of some chest pain, resistive to treatment. REVIEW OF SYSTEMS: Complains of being tired today. No CV, , pulmonary, eye system symptoms on review. MENTAL STATUS EXAM: Oriented to herself and situation. Speech has some latency, coherent. Abstraction fair, computation impaired, language function intact, attention span short, mood and affect somewhat withdrawn. LABORATORY DATA: Reviewed. IMPRESSION: Psychotic disorder, unspecified, probable bipolar 1 disorder mixed with psychotic features; cognitive disorder, unspecified. PLAN: Start trazodone 50 mg at bedtime, may repeat x 1 for insomnia. Increase Remeron to sublingual 15 mg at bedtime. Continue Aricept 5 mg a day, Zoloft 25 mg a day, Risperdal 0.5 mg at bedtime. MAN Juan David MARCUS MD DR: MARY/pierre JOB#: [id number] / [id number]
[2017-03-03 06:11] VITALS: BP 119/60
[2017-03-03 07:12] LABS: BASO % 1 % (0-3); EOS # 0.2 x10^3/uL (0.0-0.7); EOS % 2 % (0-3); HEMATOCRIT 36.8 % (36.0-47.0); HEMOGLOBIN 12.5 g/dL (12.0-15.5); LYMPH # 2.7 x10^3/uL (1.0-4.8); LYMPH % 34 % (24-48); MEAN CORPUSCULAR HEMOGLOBIN 29 pg (25-35); MEAN CORPUSCULAR HGB CONC 34 g/dL (31-37); MEAN CORPUSCULAR VOLUME 86 fL (79-100); MONO # 0.6 x10^3/uL (0.0-1.1); MONO % 8 % (0-9); NEUT # 4.5 x10^3uL (1.8-7.7); NEUT % 56 % (31-73); PLATELET COUNT 179 x10^3/uL (140-400); RED BLOOD COUNT 4.29 x10^6/uL (3.50-5.40); RED CELL DISTRIBUTION WIDTH 12.7 % (11.5-14.5)
[2017-03-03 07:27] LABS: ALBUMIN 3.4 g/dL (3.4-5.0); ALBUMIN/GLOBULIN RATIO 0.9 (1.0-1.7); CALCIUM 8.5 mg/dL (8.5-10.1); CREATININE 0.8 mg/dL (0.6-1.0); GFR 68.8; MAGNESIUM 1.9 mg/dL (1.8-2.4); POTASSIUM 3.6 mmol/L (3.5-5.1); TOTAL BILIRUBIN 0.4 mg/dL (0.2-1.0); TOTAL PROTEIN 7.4 g/dL (6.4-8.2)
[2017-03-03] MEDS: PRENATAL MULTIVITAMIN TABLET. PO SCH (09:08)
[2017-03-03] MEDS: DONEPEZIL HCL 5 MG TABLET. PO SCH (09:08)
[2017-03-03 16:54] VITALS: BP 120/75
[2017-03-03] MEDS: CHOLECALCIFEROL (VITAMIN D3) 1,000 UNIT TABLET PO SCH (17:06)
--- NOTE | 2017-03-03 19:54 | PDOC ---
Exam Dionisio Demential Exam: Dionisio Note: Please also refer to the separate dictated note~for this date of service dictated separately.~Patient seen individually. Discussed the patient with Nursing staff reviewed the chart.~Reviewed interim history and current functioning. Reviewed vital signs,~Labs/ Radiology~and current medications noted below. Continue current treatment with the changes noted in the dictated addendum note Assessment: Vital Signs: Vital Signs Date Time Temp Pulse Resp B/P (MAP) Pulse Ox O2 Delivery O2 Flow Rate FiO2 03/03/17 16:54 98.3 90 18 120/75 (90) 97 03/02/17 16:08 Room Air I&O Intake and Output 03/03/17 07:00 Intake Total 960 ml Balance 960 ml Intake Oral 960 ml Labs: Laboratory Tests Test 03/03/17 06:57 White Blood Count 8.0 x10^3/uL (4.0-11.0) Red Blood Count 4.29 x10^6/uL (3.50-5.40) Hemoglobin 12.5 g/dL (12.0-15.5) Hematocrit 36.8 % (36.0-47.0) Mean Corpuscular Volume 86 fL (79-100) Mean Corpuscular Hemoglobin 29 pg (25-35) Mean Corpuscular Hemoglobin Concent 34 g/dL (31-37) Red Cell Distribution Width 12.7 % (11.5-14.5) Platelet Count 179 x10^3/uL (140-400) Neutrophils (%) (Auto) 56 % (31-73) Lymphocytes (%) (Auto) 34 % (24-48) Monocytes (%) (Auto) 8 % (0-9) Eosinophils (%) (Auto) 2 % (0-3) Basophils (%) (Auto) 1 % (0-3) Neutrophils # (Auto) 4.5 x10^3uL (1.8-7.7) Lymphocytes # (Auto) 2.7 x10^3/uL (1.0-4.8) Monocytes # (Auto) 0.6 x10^3/uL (0.0-1.1) Eosinophils # (Auto) 0.2 x10^3/uL (0.0-0.7) Basophils # (Auto) 0.0 x10^3/uL (0.0-0.2) Sodium Level 144 mmol/L (136-145) Potassium Level 3.6 mmol/L (3.5-5.1) Chloride Level 107 mmol/L (98-107) Carbon Dioxide Level 29 mmol/L (21-32) Anion Gap 8 (6-14) Blood Urea Nitrogen 25 mg/dL (7-20) H Creatinine 0.8 mg/dL (0.6-1.0) Estimated GFR (Cockcroft-Gault) 68.8 BUN/Creatinine Ratio 31 (6-20) H Glucose Level 101 mg/dL (70-99) H Calcium Level 8.5 mg/dL (8.5-10.1) Magnesium Level 1.9 mg/dL (1.8-2.4) Total Bilirubin 0.4 mg/dL (0.2-1.0) Aspartate Amino Transferase (AST) 13 U/L (15-37) L Alanine Aminotransferase (ALT) 19 U/L (14-59) Alkaline Phosphatase 69 U/L (46-116) Total Protein 7.4 g/dL (6.4-8.2) Albumin 3.4 g/dL (3.4-5.0) Albumin/Globulin Ratio 0.9 (1.0-1.7) L Current Medications: Meds: Current Medications Acetaminophen (Tylenol) 650 mg PRN Q6HRS PRN PO PAIN / TEMP; Start 02/24/17 at 22:30; Stop 02/25/17 at 18:22; Status DC Multi-Ingredient Ointment (Analgesic [place]) 1 rich PRN QID PRN TP MUSCLE PAIN; Start 02/24/17 at 22:30 Al Hydroxide/Mg Hydroxide (Mylanta Plus Xs) 15 ml PRN AFTMEALHC PRN PO DYSPEPSIA; Start 02/24/17 at 22:30 Magnesium Hydroxide (Milk Of Magnesia) 2,400 mg PRN QHS PRN PO CONSTIPATION; Start 02/24/17 at 22:30 Donepezil HCl (Aricept) 5 mg DAILY PO Last administered on 03/03/17 09:08; Start 02/25/17 at 09:00 Olanzapine (ZyPREXA) 5 mg QHS PO Last administered on 02/26/17 19:24; Start at 23:00; Stop 02/27/17 at 21:00; Status DC Sertraline HCl (Zoloft) 25 mg QHS PO Last administered on 03/02/17 20:22; Start 02/24/17 at 23:00; Stop 03/03/17 at 10:26; Status DC Acetaminophen (Tylenol) 650 mg PRN Q4HRS PRN PO PAIN / TEMP; Start 02/24/17 at 23:45 Prenat Multivit/ Global Climate Change Analyst/Iron/Folic Ac (Multivitamin ) 1 tab DAILY PO Last administered on 03/03/17 09:08; Start 02/25/17 at 09:00 Mirtazapine (Remeron) 7.5 mg QHS PO Last administered on 03/01/17 20:05; Start 02/25/17 at 21:00; Stop 03/02/17 at 18:17; Status DC Atorvastatin Calcium (Lipitor) 20 mg QHS PO Last administered on 03/02/17 20: 21; Start 02/26/17 at 21:00 Vitamin D (Vitamin D3) 2,000 unit DAILYBFRSUP PO Last administered on 17:06; Start 02/26/17 at 17:00 Risperidone (RisperDAL) 0.25 mg QHS PO Last administered on 02/28/17 20:39; Start 02/27/17 at 21:00; Stop 03/01/17 at 18:20; Status DC Lactase (Lactaid) 3,000 unit PRN Q3HRS PRN PO GI SYMPTOMS; Start 02/28/17 at 18 :00 Risperidone (RisperDAL) 0.5 mg QHS PO Last administered on 03/02/17 20:22; Start 03/01/17 at 21:00 Mirtazapine (Remeron) 15 mg QHS PO Last administered on 03/02/17 20:22; Start 03/02/17 at 21:00 Trazodone HCl (Desyrel) 50 mg PRN QHS PRN PO INSOMNIA, MAY REPEAT X1; Start at 18:15 Sertraline HCl (Zoloft) 50 mg QHS PO ; Start 03/03/17 at 21:00 Active Scripts Active Reported Tylenol (Acetaminophen) 325 Mg Tablet 650 Mg PO PRN Q4HRS PRN Zoloft (Sertraline Hcl) 25 Mg Tablet 25 Mg PO QHS Zyprexa (Olanzapine) 5 Mg Tablet 5 Mg PO QHS Tablet ( Vit/Iron Fumarate/Fa) 1 Each Tablet 1 Tab PO DAILY Aricept (Donepezil Hcl) 5 Mg Tablet 5 Mg PO DAILY Diagnosis: Problems: (1) Anxiety disorder (2) Dementia, vascular, with delusions (3) Dementia, vascular, with depression (4) Impulse control disorder (5) Dementia in Alzheimer's disease with delusions (6) Dementia in Alzheimer's disease with depression (7) Bipolar affective, mixed BATSHEVA MARCUS MD Mar 03, 2017 19:54
[2017-03-03] MEDS: MIRTAZAPINE 15 MG TABLET PO SCH (21:09)
[2017-03-03] MEDS: risperiDONE 0.5 MG TABLET. PO SCH (21:09)
[2017-03-03] MEDS: ATORVASTATIN CALCIUM 20 MG TABLET PO SCH (21:09)
[2017-03-03] MEDS: SERTRALINE 50 MG TABLET. PO SCH (21:11)
[2017-03-04 06:03] VITALS: BP 167/80
[2017-03-04] MEDS: PRENATAL MULTIVITAMIN TABLET. PO SCH (08:07)
[2017-03-04] MEDS: DONEPEZIL HCL 5 MG TABLET. PO SCH (08:07)
[2017-03-04 16:37] VITALS: BP 165/83
[2017-03-04] MEDS: CHOLECALCIFEROL (VITAMIN D3) 1,000 UNIT TABLET PO SCH (18:11)
--- NOTE | 2017-03-04 20:07 | PDOC ---
Exam Dionisio Demential Exam: Dionisio Note: Please also refer to the separate dictated note~for this date of service dictated separately.~Patient seen individually. Discussed the patient with Nursing staff reviewed the chart.~Reviewed interim history and current functioning. Reviewed vital signs,~Labs/ Radiology~and current medications noted below. Continue current treatment with the changes noted in the dictated addendum note Assessment: Vital Signs: Vital Signs Date Time Temp Pulse Resp B/P (MAP) Pulse Ox O2 Delivery O2 Flow Rate FiO2 03/04/17 16:37 98.4 76 18 165/83 (110) 98 Room Air I&O Intake and Output 03/04/17 07:00 Intake Total 920 ml Balance 920 ml Intake Oral 920 ml Current Medications: Meds: Current Medications Acetaminophen (Tylenol) 650 mg PRN Q6HRS PRN PO PAIN / TEMP; Start 02/24/17 at 22:30; Stop 02/25/17 at 18:22; Status DC Multi-Ingredient Ointment (Analgesic [place]) 1 rich PRN QID PRN TP MUSCLE PAIN; Start 02/24/17 at 22:30 Al Hydroxide/Mg Hydroxide (Mylanta Plus Xs) 15 ml PRN AFTMEALHC PRN PO DYSPEPSIA; Start 02/24/17 at 22:30 Magnesium Hydroxide (Milk Of Magnesia) 2,400 mg PRN QHS PRN PO CONSTIPATION; Start 02/24/17 at 22:30 Donepezil HCl (Aricept) 5 mg DAILY PO Last administered on 03/04/17 08:07; Start 02/25/17 at 09:00 Olanzapine (ZyPREXA) 5 mg QHS PO Last administered on 02/26/17 19:24; Start at 23:00; Stop 02/27/17 at 21:00; Status DC Sertraline HCl (Zoloft) 25 mg QHS PO Last administered on 03/02/17 20:22; Start 02/24/17 at 23:00; Stop 03/03/17 at 10:26; Status DC Acetaminophen (Tylenol) 650 mg PRN Q4HRS PRN PO PAIN / TEMP; Start 02/24/17 at 23:45 Prenat Multivit/ Resident Services Supervisor/Iron/Folic Ac (Multivitamin ) 1 tab DAILY PO Last administered on 03/04/17 08:07; Start 02/25/17 at 09:00 Mirtazapine (Remeron) 7.5 mg QHS PO Last administered on 03/01/17 20:05; Start 02/25/17 at 21:00; Stop 03/02/17 at 18:17; Status DC Atorvastatin Calcium (Lipitor) 20 mg QHS PO Last administered on 03/03/17 21: 09; Start 02/26/17 at 21:00 Vitamin D (Vitamin D3) 2,000 unit DAILYBFRSUP PO Last administered on 18:11; Start 02/26/17 at 17:00 Risperidone (RisperDAL) 0.25 mg QHS PO Last administered on 02/28/17 20:39; Start 02/27/17 at 21:00; Stop 03/01/17 at 18:20; Status DC Lactase (Lactaid) 3,000 unit PRN Q3HRS PRN PO GI SYMPTOMS; Start 02/28/17 at 18 :00 Risperidone (RisperDAL) 0.5 mg QHS PO Last administered on 03/03/17 21:09; Start 03/01/17 at 21:00 Mirtazapine (Remeron) 15 mg QHS PO Last administered on 03/03/17 21:09; Start 03/02/17 at 21:00 Trazodone HCl (Desyrel) 50 mg PRN QHS PRN PO INSOMNIA, MAY REPEAT X1; Start at 18:15 Sertraline HCl (Zoloft) 50 mg QHS PO Last administered on 03/03/17 21:11; Start 03/03/17 at 21:00 Active Scripts Active Reported Tylenol (Acetaminophen) 325 Mg Tablet 650 Mg PO PRN Q4HRS PRN Zoloft (Sertraline Hcl) 25 Mg Tablet 25 Mg PO QHS Zyprexa (Olanzapine) 5 Mg Tablet 5 Mg PO QHS Tablet ( Vit/Iron Fumarate/Fa) 1 Each Tablet 1 Tab PO DAILY Aricept (Donepezil Hcl) 5 Mg Tablet 5 Mg PO DAILY Diagnosis: Problems: (1) Anxiety disorder (2) Dementia, vascular, with delusions (3) Dementia, vascular, with depression (4) Impulse control disorder (5) Dementia in Alzheimer's disease with delusions (6) Dementia in Alzheimer's disease with depression (7) Bipolar affective, mixed BATSHEVA MARCUS MD Mar 04, 2017 20:07
[2017-03-04] MEDS: SERTRALINE 50 MG TABLET. PO SCH (20:57)
[2017-03-04] MEDS: MIRTAZAPINE 15 MG TABLET PO SCH (20:57)
[2017-03-04] MEDS: risperiDONE 0.5 MG TABLET. PO SCH (20:57)
[2017-03-04] MEDS: ATORVASTATIN CALCIUM 20 MG TABLET PO SCH (20:57)
--- NOTE | 2017-03-05 00:31 | PN ---
DATE: 03/03/2017 This late entry for 03/03/2017 covers elements not covered in my initial note. SUBJECTIVE: The patient was staffed at a treatment team meeting with the entire team in the morning of 03/03/2017, seen individually in the evening of 03/03/2017. Appetite about 80%, sleeping average 7-1/2 hours, cooperative, at times delusional, believes she works here, but sometimes she says things even though she knows what she is saying is inaccurate for example, as I met with her this evening I introduced myself by calling her Ms. Jiang and she responded right away "there is no Ms. Jiang here." Later, she was talking about train going off the railway track and other bizarre statements, but would correct herself when I would just sit and look at her indicating that I knew she knew I did not quite believe what she was saying. REVIEW OF SYSTEMS: No CV, , pulmonary, eye, ENT system symptoms on review. She takes many of her meds in coffee, she is talking about vitamin D making her agitated, saying that she has three children, but in fact, she has no children. MENTAL STATUS EXAM: Oriented to herself and situation. Speech coherent, abstraction fair, computation impaired, language function intact. Thought disorder is relevant as noted above. No active suicidal or homicidal ideation. LABORATORY DATA: Reviewed. IMPRESSION: Probable bipolar 1 disorder, mixed with psychotic features; anxiety disorder, unspecified; cognitive disorder, unspecified. PLAN: Increase Zoloft to 50 mg a day, continue Risperdal 0.5 mg at bedtime, Aricept 5 mg a day, Remeron 15 mg at bedtime, trazodone 50 mg at bedtime p.r.n., may repeat x 1. BATSHEVA MARCUS MD DR: MARY/pierre JOB#: [id number] / [id number]
[2017-03-05 06:03] VITALS: BP 106/77
[2017-03-05] MEDS: DONEPEZIL HCL 5 MG TABLET. PO SCH (08:10)
[2017-03-05] MEDS: PRENATAL MULTIVITAMIN TABLET. PO SCH (08:10)
[2017-03-05 15:39] VITALS: BP 130/66
[2017-03-05] MEDS: CHOLECALCIFEROL (VITAMIN D3) 1,000 UNIT TABLET PO SCH (17:31)
[2017-03-05] MEDS: risperiDONE 0.5 MG TABLET. PO SCH (19:11)
[2017-03-05] MEDS: MIRTAZAPINE 15 MG TABLET PO SCH (19:11)
[2017-03-05] MEDS: SERTRALINE 50 MG TABLET. PO SCH (19:11)
[2017-03-05] MEDS: ATORVASTATIN CALCIUM 20 MG TABLET PO SCH (19:11)
[2017-03-05] MEDS: LACTASE 3,000 UNIT TABLET PO PRN (19:27)
--- NOTE | 2017-03-05 20:42 | PN ---
DATE: 03/04/2017 PSYCHIATRIC PROGRESS NOTE This is a late entry of 03/04/2017 covers elements not covered in my initial note. SUBJECTIVE: The patient slept 8-1/2 hours previous night according to nursing report takes her medications and coffee, which she did the morning of 03/04/2017. The previous night she was argumentative, delusional, talking about her being a doctor and a nurse wandering the hallways. The patient does make those statements, but when gently confronted, she retracts them and it is questionable whether these are entirely delusional apart of what patient presents herself to be as part of personality disorder. No CV, , pulmonary, eye system symptoms on review as I met with her. MENTAL STATUS EXAM: Oriented to herself and situation, though at times she ____ disorientation. Speech is coherent has some latency. Abstraction fair, computation impaired, language function intact. Mood and affect somewhat labile at times. LABORATORY DATA: Reviewed. IMPRESSION: Psychotic disorder, unspecified, rule out bipolar 1 mixed with psychotic features. PLAN: Continue current psychotropics, Risperdal, Aricept, Zoloft, Remeron, and trazodone p.r.n. BATSHEVA MARCUS MD DR: MARY/pierre JOB#: [id number] / [id number]
--- NOTE | 2017-03-05 22:06 | PDOC ---
Exam Dionisio Demential Exam: Dionisio Note: Please also refer to the separate dictated note~for this date of service dictated separately.~Patient seen individually. Discussed the patient with Nursing staff reviewed the chart.~Reviewed interim history and current functioning. Reviewed vital signs,~Labs/ Radiology~and current medications noted below. Continue current treatment with the changes noted in the dictated addendum note Assessment: Vital Signs: Vital Signs Date Time Temp Pulse Resp B/P (MAP) Pulse Ox O2 Delivery O2 Flow Rate FiO2 03/05/17 15:39 99.0 75 18 130/66 (87) 96 03/04/17 16:37 Room Air I&O Intake and Output 03/05/17 07:00 Intake Total 835 ml Balance 835 ml Intake Oral 835 ml Current Medications: Meds: Current Medications Acetaminophen (Tylenol) 650 mg PRN Q6HRS PRN PO PAIN / TEMP; Start 02/24/17 at 22:30; Stop 02/25/17 at 18:22; Status DC Multi-Ingredient Ointment (Analgesic [place]) 1 rich PRN QID PRN TP MUSCLE PAIN; Start 02/24/17 at 22:30 Al Hydroxide/Mg Hydroxide (Mylanta Plus Xs) 15 ml PRN AFTMEALHC PRN PO DYSPEPSIA; Start 02/24/17 at 22:30 Magnesium Hydroxide (Milk Of Magnesia) 2,400 mg PRN QHS PRN PO CONSTIPATION; Start 02/24/17 at 22:30 Donepezil HCl (Aricept) 5 mg DAILY PO Last administered on 03/05/17 08:10; Start 02/25/17 at 09:00 Olanzapine (ZyPREXA) 5 mg QHS PO Last administered on 02/26/17 19:24; Start at 23:00; Stop 02/27/17 at 21:00; Status DC Sertraline HCl (Zoloft) 25 mg QHS PO Last administered on 03/02/17 20:22; Start 02/24/17 at 23:00; Stop 03/03/17 at 10:26; Status DC Acetaminophen (Tylenol) 650 mg PRN Q4HRS PRN PO PAIN / TEMP; Start 02/24/17 at 23:45 Prenat Multivit/ [place]/Iron/Folic Ac (Multivitamin ) 1 tab DAILY PO Last administered on 03/05/17 08:10; Start 02/25/17 at 09:00 Mirtazapine (Remeron) 7.5 mg QHS PO Last administered on 03/01/17 20:05; Start 02/25/17 at 21:00; Stop 03/02/17 at 18:17; Status DC Atorvastatin Calcium (Lipitor) 20 mg QHS PO Last administered on 03/05/17 19: 11; Start 02/26/17 at 21:00 Vitamin D (Vitamin D3) 2,000 unit DAILYBFRSUP PO Last administered on 17:31; Start 02/26/17 at 17:00 Risperidone (RisperDAL) 0.25 mg QHS PO Last administered on 02/28/17 20:39; Start 02/27/17 at 21:00; Stop 03/01/17 at 18:20; Status DC Lactase (Lactaid) 3,000 unit PRN Q3HRS PRN PO GI SYMPTOMS Last administered on 03/05/17 19:27; Start 02/28/17 at 18:00 Risperidone (RisperDAL) 0.5 mg QHS PO Last administered on 03/05/17 19:11; Start 03/01/17 at 21:00 Mirtazapine (Remeron) 15 mg QHS PO Last administered on 03/05/17 19:11; Start 03/02/17 at 21:00 Trazodone HCl (Desyrel) 50 mg PRN QHS PRN PO INSOMNIA, MAY REPEAT X1; Start at 18:15 Sertraline HCl (Zoloft) 50 mg QHS PO Last administered on 03/05/17 19:11; Start 03/03/17 at 21:00 Active Scripts Active Reported Tylenol (Acetaminophen) 325 Mg Tablet 650 Mg PO PRN Q4HRS PRN Zoloft (Sertraline Hcl) 25 Mg Tablet 25 Mg PO QHS Zyprexa (Olanzapine) 5 Mg Tablet 5 Mg PO QHS Tablet ( Vit/Iron Fumarate/Fa) 1 Each Tablet 1 Tab PO DAILY Aricept (Donepezil Hcl) 5 Mg Tablet 5 Mg PO DAILY Diagnosis: Problems: (1) Anxiety disorder (2) Dementia, vascular, with delusions (3) Dementia, vascular, with depression (4) Impulse control disorder (5) Dementia in Alzheimer's disease with delusions (6) Dementia in Alzheimer's disease with depression (7) Bipolar affective, mixed BATSHEVA MARCUS MD Mar 05, 2017 22:06
--- NOTE | 2017-03-06 04:04 | PN ---
DATE: 03/05/2017 This note covers elements not covered in my initial note. SUBJECTIVE: The patient slept 6-1/2 hours previous night, takes her medications whole, was pleasant, took a shower, spends much time in the room. As I met with her, she comes up with rather bizarre statements. 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 She has a sly smile about her indicating that even though some of this appears psychotic, perhaps she recognizes part of what she is saying is not entirely true. REVIEW OF SYSTEMS: No CV, , pulmonary, eye system symptoms on review. MENTAL STATUS EXAM: Oriented to herself and situation. Speech is coherent, has some latency. Abstraction fair, computation impaired, language function intact, attention span short. Mood and affect despite the above is showing some improvement. LABORATORY DATA: Reviewed. IMPRESSION: Bipolar 1 disorder, mixed with psychotic features; psychotic disorder, unspecified, cognitive disorder, unspecified. PLAN: Maintain Risperdal 0.5 mg at bedtime, Zoloft 50 mg a day, Aricept 5 mg a day, Remeron 15 mg at bedtime, trazodone 50 mg at bedtime p.r.n., january repeat x 1. MAN Juan David MARCUS MD DR: MARY/pierre JOB#: [id number] / [id number]
[2017-03-06 05:59] VITALS: BP_SYST 132; BP_SYST 134; BP_DIAS 81; BP_DIAS 84
[2017-03-06] MEDS: PRENATAL MULTIVITAMIN TABLET. PO SCH (09:10)
[2017-03-06] MEDS: DONEPEZIL HCL 5 MG TABLET. PO SCH (09:10)
[2017-03-06 15:51] VITALS: BP 145/68
[2017-03-06] MEDS: CHOLECALCIFEROL (VITAMIN D3) 1,000 UNIT TABLET PO SCH (17:08)
[2017-03-06] MEDS: MIRTAZAPINE 15 MG TABLET PO SCH (19:17)
[2017-03-06] MEDS: SERTRALINE 50 MG TABLET. PO SCH (19:17)
[2017-03-06] MEDS: ATORVASTATIN CALCIUM 20 MG TABLET PO SCH (19:17)
[2017-03-06] MEDS: risperiDONE 0.5 MG TABLET. PO SCH (19:17)
--- NOTE | 2017-03-06 21:17 | PDOC ---
Exam Doinisio Demential Exam: Dionisio Note: Please also refer to the separate dictated note~for this date of service dictated separately.~Patient seen individually. Discussed the patient with Nursing staff reviewed the chart.~Reviewed interim history and current functioning. Reviewed vital signs,~Labs/ Radiology~and current medications noted below. Continue current treatment with the changes noted in the dictated addendum note Assessment: Vital Signs: Vital Signs Date Time Temp Pulse Resp B/P (MAP) Pulse Ox O2 Delivery O2 Flow Rate FiO2 03/06/17 15:51 98.0 78 18 145/68 (93) 97 03/04/17 16:37 Room Air I&O Intake and Output 03/06/17 07:00 Intake Total 1200 ml Balance 1200 ml Intake Oral 1200 ml # Voids 2 Current Medications: Meds: Current Medications Acetaminophen (Tylenol) 650 mg PRN Q6HRS PRN PO PAIN / TEMP; Start 02/24/17 at 22:30; Stop 02/25/17 at 18:22; Status DC Multi-Ingredient Ointment (Analgesic [place]) 1 rich PRN QID PRN TP MUSCLE PAIN; Start 02/24/17 at 22:30 Al Hydroxide/Mg Hydroxide (Mylanta Plus Xs) 15 ml PRN AFTMEALHC PRN PO DYSPEPSIA; Start 02/24/17 at 22:30 Magnesium Hydroxide (Milk Of Magnesia) 2,400 mg PRN QHS PRN PO CONSTIPATION; Start 02/24/17 at 22:30 Donepezil HCl (Aricept) 5 mg DAILY PO Last administered on 03/06/17 09:10; Start 02/25/17 at 09:00 Olanzapine (ZyPREXA) 5 mg QHS PO Last administered on 02/26/17 19:24; Start at 23:00; Stop 02/27/17 at 21:00; Status DC Sertraline HCl (Zoloft) 25 mg QHS PO Last administered on 03/02/17 20:22; Start 02/24/17 at 23:00; Stop 03/03/17 at 10:26; Status DC Acetaminophen (Tylenol) 650 mg PRN Q4HRS PRN PO PAIN / TEMP; Start 02/24/17 at 23:45 Prenat Multivit/ [place]/Iron/Folic Ac (Multivitamin ) 1 tab DAILY PO Last administered on 03/06/17 09:10; Start 02/25/17 at 09:00 Mirtazapine (Remeron) 7.5 mg QHS PO Last administered on 03/01/17 20:05; Start 02/25/17 at 21:00; Stop 03/02/17 at 18:17; Status DC Atorvastatin Calcium (Lipitor) 20 mg QHS PO Last administered on 03/06/17 19: 17; Start 02/26/17 at 21:00 Vitamin D (Vitamin D3) 2,000 unit DAILYBFRSUP PO Last administered on 17:08; Start 02/26/17 at 17:00 Risperidone (RisperDAL) 0.25 mg QHS PO Last administered on 02/28/17 20:39; Start 02/27/17 at 21:00; Stop 03/01/17 at 18:20; Status DC Lactase (Lactaid) 3,000 unit PRN Q3HRS PRN PO GI SYMPTOMS Last administered on 03/05/17 19:27; Start 02/28/17 at 18:00 Risperidone (RisperDAL) 0.5 mg QHS PO Last administered on 03/06/17 19:17; Start 03/01/17 at 21:00 Mirtazapine (Remeron) 15 mg QHS PO Last administered on 03/06/17 19:17; Start 03/02/17 at 21:00 Trazodone HCl (Desyrel) 50 mg PRN QHS PRN PO INSOMNIA, MAY REPEAT X1; Start at 18:15 Sertraline HCl (Zoloft) 50 mg QHS PO Last administered on 03/06/17 19:17; Start 03/03/17 at 21:00 Active Scripts Active Reported Tylenol (Acetaminophen) 325 Mg Tablet 650 Mg PO PRN Q4HRS PRN Zoloft (Sertraline Hcl) 25 Mg Tablet 25 Mg PO QHS Zyprexa (Olanzapine) 5 Mg Tablet 5 Mg PO QHS Tablet ( Vit/Iron Fumarate/Fa) 1 Each Tablet 1 Tab PO DAILY Aricept (Donepezil Hcl) 5 Mg Tablet 5 Mg PO DAILY Diagnosis: Problems: (1) Anxiety disorder (2) Dementia, vascular, with delusions (3) Dementia, vascular, with depression (4) Impulse control disorder (5) Dementia in Alzheimer's disease with delusions (6) Dementia in Alzheimer's disease with depression (7) Bipolar affective, mixed BATSHEVA MARCUS MD Mar 06, 2017 21:17
[2017-03-07 05:50] VITALS: BP 157/74
[2017-03-07] MEDS: PRENATAL MULTIVITAMIN TABLET. PO SCH (08:46)
[2017-03-07] MEDS: DONEPEZIL HCL 5 MG TABLET. PO SCH (08:46)
--- NOTE | 2017-03-07 09:48 | PN ---
DATE: 03/06/2017 SUBJECTIVE: This note covers elements not covered in my other note from today. The patient was seen individually, discussed with nursing staff, and reviewed the chart. She sometimes resistive to taking her medications. They have to be hidden in food. She is well oriented, pleasant, and slept in this morning. Goes back to her room after each meal. She still comes up with somewhat delusional and unconnected statements, but nursing staff feel the patient is aware of what she is saying is inaccurate. For example, today she was insisting that I had promised to operate on her sister and she was upset that I did not do that. 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 Seems to recognize thought of what is inappropriate about our conversation, but persists with it nevertheless. She certainly is somewhat delusional, but perhaps on the surface presents greater degree of this than she truly is. REVIEW OF SYSTEMS: No CV, , pulmonary, eye, or ENT system symptoms on review. Reliability somewhat poor. MENTAL STATUS EXAM: Oriented to herself and situation, though at times she makes it out that she is not oriented. Speech has some latency and coherent. Abstraction fair, computation impaired, language function intact, attention span short, and mood and affect somewhat labile at times. LABORATORY DATA: Reviewed. IMPRESSION: Psychotic disorder, unspecified, probable bipolar 1 disorder mixed with psychotic features; anxiety disorder, unspecified; and cognitive disorder, unspecified. PLAN: Continue Risperdal 0.5 mg at bedtime, Zoloft 50 mg a day, Remeron 15 mg at bedtime, Aricept 5 mg a day, and trazodone p.r.n. Adjust as clinically indicated. Dr. Ronquillo will assume care during my upcoming vacation. MAN Juan David MARCUS MD DR: MARY/pierre JOB#: [id number] / [id number]
[2017-03-07 16:34] VITALS: BP 159/75
[2017-03-07] MEDS: CHOLECALCIFEROL (VITAMIN D3) 1,000 UNIT TABLET PO SCH (16:47)
--- NOTE | 2017-03-07 20:19 | PDOC ---
Exam Dionisio Demential Exam: Dionisio Note: Please also refer to the separate dictated note~for this date of service dictated separately.~Patient seen individually. Discussed the patient with Nursing staff reviewed the chart.~Reviewed interim history and current functioning. Reviewed vital signs,~Labs/ Radiology~and current medications noted below. Continue current treatment with the changes noted in the dictated addendum note Assessment: Vital Signs: Vital Signs Date Time Temp Pulse Resp B/P (MAP) Pulse Ox O2 Delivery O2 Flow Rate FiO2 03/07/17 16:34 98.2 84 20 159/75 (103) 97 Room Air I&O Intake and Output 03/07/17 07:00 Intake Total 1420 ml Balance 1420 ml Intake Oral 1420 ml # Voids 2 # Bowel Movements 1 Current Medications: Meds: Current Medications Acetaminophen (Tylenol) 650 mg PRN Q6HRS PRN PO PAIN / TEMP; Start 02/24/17 at 22:30; Stop 02/25/17 at 18:22; Status DC Multi-Ingredient Ointment (Analgesic [place]) 1 rich PRN QID PRN TP MUSCLE PAIN; Start 02/24/17 at 22:30 Al Hydroxide/Mg Hydroxide (Mylanta Plus Xs) 15 ml PRN AFTMEALHC PRN PO DYSPEPSIA; Start 02/24/17 at 22:30 Magnesium Hydroxide (Milk Of Magnesia) 2,400 mg PRN QHS PRN PO CONSTIPATION; Start 02/24/17 at 22:30 Donepezil HCl (Aricept) 5 mg DAILY PO Last administered on 03/07/17 08:46; Start 02/25/17 at 09:00 Olanzapine (ZyPREXA) 5 mg QHS PO Last administered on 02/26/17 19:24; Start at 23:00; Stop 02/27/17 at 21:00; Status DC Sertraline HCl (Zoloft) 25 mg QHS PO Last administered on 03/02/17 20:22; Start 02/24/17 at 23:00; Stop 03/03/17 at 10:26; Status DC Acetaminophen (Tylenol) 650 mg PRN Q4HRS PRN PO PAIN / TEMP; Start 02/24/17 at 23:45 Prenat Multivit/ [place]/Iron/Folic Ac (Multivitamin ) 1 tab DAILY PO Last administered on 03/07/17 08:46; Start 02/25/17 at 09:00 Mirtazapine (Remeron) 7.5 mg QHS PO Last administered on 03/01/17 20:05; Start 02/25/17 at 21:00; Stop 03/02/17 at 18:17; Status DC Atorvastatin Calcium (Lipitor) 20 mg QHS PO Last administered on 03/06/17 19: 17; Start 02/26/17 at 21:00 Vitamin D (Vitamin D3) 2,000 unit DAILYBFRSUP PO Last administered on 16:47; Start 02/26/17 at 17:00 Risperidone (RisperDAL) 0.25 mg QHS PO Last administered on 02/28/17 20:39; Start 02/27/17 at 21:00; Stop 03/01/17 at 18:20; Status DC Lactase (Lactaid) 3,000 unit PRN Q3HRS PRN PO GI SYMPTOMS Last administered on 03/05/17 19:27; Start 02/28/17 at 18:00 Risperidone (RisperDAL) 0.5 mg QHS PO Last administered on 03/06/17 19:17; Start 03/01/17 at 21:00 Mirtazapine (Remeron) 15 mg QHS PO Last administered on 03/06/17 19:17; Start 03/02/17 at 21:00 Trazodone HCl (Desyrel) 50 mg PRN QHS PRN PO INSOMNIA, MAY REPEAT X1; Start at 18:15 Sertraline HCl (Zoloft) 50 mg QHS PO Last administered on 03/06/17 19:17; Start 03/03/17 at 21:00 Active Scripts Active Reported Tylenol (Acetaminophen) 325 Mg Tablet 650 Mg PO PRN Q4HRS PRN Zoloft (Sertraline Hcl) 25 Mg Tablet 25 Mg PO QHS Zyprexa (Olanzapine) 5 Mg Tablet 5 Mg PO QHS Tablet ( Vit/Iron Fumarate/Fa) 1 Each Tablet 1 Tab PO DAILY Aricept (Donepezil Hcl) 5 Mg Tablet 5 Mg PO DAILY Diagnosis: Problems: (1) Anxiety disorder (2) Dementia, vascular, with delusions (3) Dementia, vascular, with depression (4) Impulse control disorder (5) Dementia in Alzheimer's disease with delusions (6) Dementia in Alzheimer's disease with depression (7) Bipolar affective, mixed BATSHEVA MARCUS MD Mar 07, 2017 20:19
[2017-03-07] MEDS: risperiDONE 0.5 MG TABLET. PO SCH (20:26)
[2017-03-07] MEDS: MIRTAZAPINE 15 MG TABLET PO SCH (20:26)
[2017-03-07] MEDS: ATORVASTATIN CALCIUM 20 MG TABLET PO SCH (20:26)
[2017-03-07] MEDS: SERTRALINE 50 MG TABLET. PO SCH (20:26)
--- NOTE | 2017-03-08 03:59 | PN ---
DATE: 03/07/2017 SUBJECTIVE: The patient was seen today, met with the staff, chart reviewed, also covering for Dr. Patrick. Staff reports no major problems at this time. The patient is on admission was psychotic with delusions, aggression, grabbing staff, refusing demands and also elopement risk. Most of the behavior improved. OBSERVATION: VITAL SIGNS: Temperature 98.3, blood pressure 157/74, pulse 75, respirations 18, O2 sat 96%. GENERAL: The patient slept about 6 hours last night. CURRENT MEDICATIONS: The patient is currently on Zoloft 50 mg at night, mirtazapine 15 mg at night, trazodone 50 mg at night p.r.n., Risperdal 0.5 mg at night, Aricept 5 mg daily. The patient is not having any side effects to the medications. The patient's lab reviewed, which were all normal. ASSESSMENT: Psychotic disorder, unspecified, probable bipolar disorder, mixed with psychotic features. PLAN: To continue with the treatment. We will discuss with the staff the treatment plan with regard to discharge plan. OLIVIA DICKINSON MD DR: MYA/pierre JOB#: [id number] / [id number]
[2017-03-08 06:12] VITALS: BP 158/79
[2017-03-08] MEDS: PRENATAL MULTIVITAMIN TABLET. PO SCH (08:54)
[2017-03-08] MEDS: DONEPEZIL HCL 5 MG TABLET. PO SCH (08:54)
[2017-03-08 15:51] VITALS: BP 164/85
[2017-03-08] MEDS: CHOLECALCIFEROL (VITAMIN D3) 1,000 UNIT TABLET PO SCH (17:03)
[2017-03-08] MEDS: SERTRALINE 50 MG TABLET. PO SCH (19:52)
[2017-03-08] MEDS: ATORVASTATIN CALCIUM 20 MG TABLET PO SCH (19:52)
[2017-03-08] MEDS: MIRTAZAPINE 15 MG TABLET PO SCH (19:52)
[2017-03-08] MEDS: risperiDONE 0.5 MG TABLET. PO SCH (19:52)
[2017-03-09 05:57] VITALS: BP 146/76
[2017-03-09 06:57] LABS: BASO # 0.1 x10^3/uL (0.0-0.2); BASO % 1 % (0-3); EOS # 0.3 x10^3/uL (0.0-0.7); EOS % 3 % (0-3); HEMATOCRIT 34.6 % (36.0-47.0); HEMOGLOBIN 11.7 g/dL (12.0-15.5); LYMPH # 2.8 x10^3/uL (1.0-4.8); LYMPH % 29 % (24-48); MEAN CORPUSCULAR HEMOGLOBIN 29 pg (25-35); MEAN CORPUSCULAR HGB CONC 34 g/dL (31-37); MEAN CORPUSCULAR VOLUME 86 fL (79-100); MONO # 0.8 x10^3/uL (0.0-1.1); MONO % 9 % (0-9); NEUT # 5.6 x10^3uL (1.8-7.7); NEUT % 59 % (31-73); PLATELET COUNT 195 x10^3/uL (140-400); RED BLOOD COUNT 4.01 x10^6/uL (3.50-5.40); RED CELL DISTRIBUTION WIDTH 12.9 % (11.5-14.5); WHITE BLOOD COUNT 9.6 x10^3/uL (4.0-11.0)
[2017-03-09 07:08] LABS: ALBUMIN 3.1 g/dL (3.4-5.0); ALBUMIN/GLOBULIN RATIO 0.8 (1.0-1.7); CALCIUM 8.4 mg/dL (8.5-10.1); CREATININE 0.7 mg/dL (0.6-1.0); GFR 80.3; TOTAL BILIRUBIN 0.4 mg/dL (0.2-1.0); TOTAL PROTEIN 7.1 g/dL (6.4-8.2)
[2017-03-09] MEDS: DONEPEZIL HCL 5 MG TABLET. PO SCH (11:13)
[2017-03-09] MEDS: PRENATAL MULTIVITAMIN TABLET. PO SCH (11:13)
[2017-03-09 15:45] VITALS: BP 157/78
[2017-03-09] MEDS: SERTRALINE 50 MG TABLET. PO SCH (20:13)
[2017-03-09] MEDS: MIRTAZAPINE 15 MG TABLET PO SCH (20:13)
[2017-03-09] MEDS: ATORVASTATIN CALCIUM 20 MG TABLET PO SCH (20:13)
[2017-03-09] MEDS: risperiDONE 0.5 MG TABLET. PO SCH (20:14)
--- NOTE | 2017-03-10 01:41 | PDOC ---
PROVIDER NOTE PROVIDER NOTE PROVIDER NOTE 0103, a CODE BLUE was called on patient Maddie Jiang. I responded to the patient' s room from the emergency department. Upon entering the room I saw the patient in a state of lifelessness actively receiving CPR and bag assisted ventilation. The patient was cyanotic on my arrival. Staff informed me that the patient was last seen at her baseline at 0045. On recheck at 0101 the patient was found to be lifeless. An AED was applied prior to my arrival in the staff stated that they were informed by the AED that no shock was advised. The initial rhythm that was reported to me was asystole. CPR was continued throughout the entire code with brief pauses for rhythm check. Of note the patient's color improved with ventilations and CPR. The patient continued to remain in asystole despite obtaining IV access and receiving 2 rounds of IV epinephrine. At 0117, CPR was discontinued and patient again showed asystole on the monitor. Patient had no palpable pulses and no spontaneous respirations. Time of was called at 0117. Nursing staff and housekeeper child care inform the patient's family as well as the admitting physicians. The patient will be transferred to the [facility] pending a decision on transfer by family to home. MARY HELTON MD Mar 10, 2017 01:41
[2017-03-10 06:19] VITALS: BP 189/91
[2017-03-10] MEDS: PRENATAL MULTIVITAMIN TABLET. PO SCH (08:54)
[2017-03-10] MEDS: DONEPEZIL HCL 5 MG TABLET. PO SCH (08:55)
[2017-03-10 15:24] VITALS: BP 141/66
[2017-03-10] MEDS: LISINOPRIL 10 MG TABLET PO SCH (15:28)
[2017-03-10] MEDS: CHOLECALCIFEROL (VITAMIN D3) 1,000 UNIT TABLET PO SCH (16:38)
[2017-03-10] MEDS: ATORVASTATIN CALCIUM 20 MG TABLET PO SCH (19:39)
[2017-03-10] MEDS: risperiDONE 0.5 MG TABLET. PO SCH (19:40)
[2017-03-10] MEDS: SERTRALINE 50 MG TABLET. PO SCH (19:40)
[2017-03-10] MEDS: MIRTAZAPINE 7.5 MG TABLET. PO SCH (19:42)
[2017-03-11 05:50] VITALS: BP 173/88
[2017-03-11] MEDS: PRENATAL MULTIVITAMIN TABLET. PO SCH (09:38)
[2017-03-11] MEDS: DONEPEZIL HCL 5 MG TABLET. PO SCH (09:39)
[2017-03-11] MEDS: LISINOPRIL 10 MG TABLET PO SCH (09:39)
[2017-03-11 16:03] VITALS: BP 154/78
[2017-03-11] MEDS: CHOLECALCIFEROL (VITAMIN D3) 1,000 UNIT TABLET PO SCH (16:58)
[2017-03-11] MEDS: ATORVASTATIN CALCIUM 20 MG TABLET PO SCH (19:15)
[2017-03-11] MEDS: risperiDONE 0.5 MG TABLET. PO SCH (19:15)
[2017-03-11] MEDS: MIRTAZAPINE 7.5 MG TABLET. PO SCH (19:15)
[2017-03-11] MEDS: SERTRALINE 50 MG TABLET. PO SCH (19:16)
[2017-03-12 06:01] VITALS: BP 125/59
[2017-03-12] MEDS: PRENATAL MULTIVITAMIN TABLET. PO SCH (08:15)
[2017-03-12] MEDS: LISINOPRIL 10 MG TABLET PO SCH (08:15)
[2017-03-12] MEDS: DONEPEZIL HCL 5 MG TABLET. PO SCH (08:15)
[2017-03-12] MEDS: CHOLECALCIFEROL (VITAMIN D3) 1,000 UNIT TABLET PO SCH (08:17)
[2017-03-12 16:24] VITALS: BP 123/62
[2017-03-12] MEDS: SERTRALINE 50 MG TABLET. PO SCH (19:42)
[2017-03-12] MEDS: risperiDONE 0.5 MG TABLET. PO SCH (19:42)
[2017-03-12] MEDS: ATORVASTATIN CALCIUM 20 MG TABLET PO SCH (19:42)
[2017-03-12] MEDS: MIRTAZAPINE 7.5 MG TABLET. PO SCH (19:42)
--- NOTE | 2017-03-12 21:34 | PDOC ---
Exam Dionisio Demential Exam: Dionisio Note: Please also refer to the separate dictated note~for this date of service dictated separately.~Patient seen individually. Discussed the patient with Nursing staff reviewed the chart.~Reviewed interim history and current functioning. Reviewed vital signs,~Labs/ Radiology~and current medications noted below. Continue current treatment with the changes noted in the dictated addendum note Assessment: Vital Signs: Vital Signs Date Time Temp Pulse Resp B/P (MAP) Pulse Ox O2 Delivery O2 Flow Rate FiO2 03/12/17 16:24 98.5 81 16 123/62 (82) 94 03/11/17 05:50 Room Air I&O Intake and Output 03/12/17 07:00 Intake Total 840 ml Balance 840 ml Intake Oral 840 ml Current Medications: Meds: Current Medications Acetaminophen (Tylenol) 650 mg PRN Q6HRS PRN PO PAIN / TEMP; Start 02/24/17 at 22:30; Stop 02/25/17 at 18:22; Status DC Multi-Ingredient Ointment (Analgesic [place]) 1 rich PRN QID PRN TP MUSCLE PAIN; Start 02/24/17 at 22:30 Al Hydroxide/Mg Hydroxide (Mylanta Plus Xs) 15 ml PRN AFTMEALHC PRN PO DYSPEPSIA; Start 02/24/17 at 22:30 Magnesium Hydroxide (Milk Of Magnesia) 2,400 mg PRN QHS PRN PO CONSTIPATION Last administered on 03/10/17 19:40; Start 02/24/17 at 22:30 Donepezil HCl (Aricept) 5 mg DAILY PO Last administered on 03/12/17 08:15; Start 02/25/17 at 09:00 Olanzapine (ZyPREXA) 5 mg QHS PO Last administered on 02/26/17 19:24; Start at 23:00; Stop 02/27/17 at 21:00; Status DC Sertraline HCl (Zoloft) 25 mg QHS PO Last administered on 03/02/17 20:22; Start 02/24/17 at 23:00; Stop 03/03/17 at 10:26; Status DC Acetaminophen (Tylenol) 650 mg PRN Q4HRS PRN PO PAIN / TEMP; Start 02/24/17 at 23:45 Prenat Multivit/ [place]/Iron/Folic Ac (Multivitamin ) 1 tab DAILY PO Last administered on 03/12/17 08:15; Start 02/25/17 at 09:00 Mirtazapine (Remeron) 7.5 mg QHS PO Last administered on 03/01/17 20:05; Start 02/25/17 at 21:00; Stop 03/02/17 at 18:17; Status DC Atorvastatin Calcium (Lipitor) 20 mg QHS PO Last administered on 03/12/17 19:42 ; Start 02/26/17 at 21:00 Vitamin D (Vitamin D3) 2,000 unit DAILYBFRSUP PO Last administered on 03/12/17 08:17; Start 02/26/17 at 17:00 Risperidone (RisperDAL) 0.25 mg QHS PO Last administered on 02/28/17 20:39; Start 02/27/17 at 21:00; Stop 03/01/17 at 18:20; Status DC Lactase (Lactaid) 3,000 unit PRN Q3HRS PRN PO GI SYMPTOMS Last administered on 03/05/17 19:27; Start 02/28/17 at 18:00 Risperidone (RisperDAL) 0.5 mg QHS PO Last administered on 03/12/17 19:42; Start 03/01/17 at 21:00 Mirtazapine (Remeron) 15 mg QHS PO Last administered on 03/09/17 20:13; Start 03/02/17 at 21:00; Stop 03/10/17 at 15:56; Status DC Trazodone HCl (Desyrel) 50 mg PRN QHS PRN PO INSOMNIA, MAY REPEAT X1; Start at 18:15 Sertraline HCl (Zoloft) 50 mg QHS PO Last administered on 03/12/17 19:42; Start 03/03/17 at 21:00 Lisinopril (Prinivil) 10 mg DAILY PO Last administered on 03/12/17 08:15; Start 03/10/17 at 15:00 Mirtazapine (Remeron) 7.5 mg QHS PO Last administered on 03/12/17 19:42; Start 03/10/17 at 21:00 Active Scripts Active Reported Tylenol (Acetaminophen) 325 Mg Tablet 650 Mg PO PRN Q4HRS PRN Zoloft (Sertraline Hcl) 25 Mg Tablet 25 Mg PO QHS Zyprexa (Olanzapine) 5 Mg Tablet 5 Mg PO QHS Tablet ( Vit/Iron Fumarate/Fa) 1 Each Tablet 1 Tab PO DAILY Aricept (Donepezil Hcl) 5 Mg Tablet 5 Mg PO DAILY Diagnosis: Problems: (1) Anxiety disorder (2) Dementia, vascular, with delusions (3) Dementia, vascular, with depression (4) Impulse control disorder (5) Dementia in Alzheimer's disease with delusions (6) Dementia in Alzheimer's disease with depression (7) Bipolar affective, mixed BATSHEVA MARCUS MD Mar 12, 2017 21:34
[2017-03-13 06:24] VITALS: BP 116/79
[2017-03-13] MEDS: LISINOPRIL 10 MG TABLET PO SCH (08:20)
[2017-03-13] MEDS: LACTASE 3,000 UNIT TABLET PO PRN (08:20)
[2017-03-13] MEDS: PRENATAL MULTIVITAMIN TABLET. PO SCH (08:20)
[2017-03-13] MEDS: DONEPEZIL HCL 5 MG TABLET. PO SCH (08:21)
[2017-03-13 16:01] VITALS: BP 112/58
[2017-03-13 16:30] LABS: ALBUMIN 2.9 g/dL (3.4-5.0); ALBUMIN/GLOBULIN RATIO 0.7 (1.0-1.7); CALCIUM 8.5 mg/dL (8.5-10.1); CREATININE 0.9 mg/dL (0.6-1.0); GFR 60.1; MAGNESIUM 2.2 mg/dL (1.8-2.4); TOTAL BILIRUBIN 0.3 mg/dL (0.2-1.0); TOTAL PROTEIN 7.2 g/dL (6.4-8.2)
[2017-03-13 16:38] LABS: BASO % 0 % (0-3); EOS # 0.2 x10^3/uL (0.0-0.7); EOS % 2 % (0-3); HEMATOCRIT 34.1 % (36.0-47.0); HEMOGLOBIN 11.7 g/dL (12.0-15.5); LYMPH # 2.2 x10^3/uL (1.0-4.8); LYMPH % 23 % (24-48); MEAN CORPUSCULAR HEMOGLOBIN 30 pg (25-35); MEAN CORPUSCULAR HGB CONC 34 g/dL (31-37); MEAN CORPUSCULAR VOLUME 86 fL (79-100); MONO # 0.9 x10^3/uL (0.0-1.1); MONO % 9 % (0-9); NEUT # 6.2 x10^3uL (1.8-7.7); NEUT % 66 % (31-73); PLATELET COUNT 241 x10^3/uL (140-400); RED BLOOD COUNT 3.95 x10^6/uL (3.50-5.40); RED CELL DISTRIBUTION WIDTH 12.9 % (11.5-14.5); WHITE BLOOD COUNT 9.5 x10^3/uL (4.0-11.0)
[2017-03-13] MEDS: CHOLECALCIFEROL (VITAMIN D3) 1,000 UNIT TABLET PO SCH (17:34)
[2017-03-13] MEDS ORDERED: risperiDONE 0.25 MG TABLET. PO SCH (21:00)
[2017-03-13] MEDS: SERTRALINE 50 MG TABLET. PO SCH (21:08)
[2017-03-13] MEDS: MIRTAZAPINE 7.5 MG TABLET. PO SCH (21:08)
[2017-03-13] MEDS: ATORVASTATIN CALCIUM 20 MG TABLET PO SCH (21:08)
--- NOTE | 2017-03-13 21:20 | PDOC ---
Exam Dionisio Demential Exam: Dionisio Note: Please also refer to the separate dictated note~for this date of service dictated separately.~Patient seen individually. Discussed the patient with Nursing staff reviewed the chart.~Reviewed interim history and current functioning. Reviewed vital signs,~Labs/ Radiology~and current medications noted below. Continue current treatment with the changes noted in the dictated addendum note Assessment: Vital Signs: Vital Signs Date Time Temp Pulse Resp B/P (MAP) Pulse Ox O2 Delivery O2 Flow Rate FiO2 03/13/17 16:01 99.1 80 16 112/58 (76) 94 03/11/17 05:50 Room Air I&O Intake and Output 03/13/17 07:00 Intake Total 600 ml Balance 600 ml Intake Oral 600 ml # Bowel Movements 3 Labs: Laboratory Tests Test 03/13/17 16:04 White Blood Count 9.5 x10^3/uL (4.0-11.0) Red Blood Count 3.95 x10^6/uL (3.50-5.40) Hemoglobin 11.7 g/dL (12.0-15.5) L Hematocrit 34.1 % (36.0-47.0) L Mean Corpuscular Volume 86 fL (79-100) Mean Corpuscular Hemoglobin 30 pg (25-35) Mean Corpuscular Hemoglobin Concent 34 g/dL (31-37) Red Cell Distribution Width 12.9 % (11.5-14.5) Platelet Count 241 x10^3/uL (140-400) Neutrophils (%) (Auto) 66 % (31-73) Lymphocytes (%) (Auto) 23 % (24-48) L Monocytes (%) (Auto) 9 % (0-9) Eosinophils (%) (Auto) 2 % (0-3) Basophils (%) (Auto) 0 % (0-3) Neutrophils # (Auto) 6.2 x10^3uL (1.8-7.7) Lymphocytes # (Auto) 2.2 x10^3/uL (1.0-4.8) Monocytes # (Auto) 0.9 x10^3/uL (0.0-1.1) Eosinophils # (Auto) 0.2 x10^3/uL (0.0-0.7) Basophils # (Auto) 0.0 x10^3/uL (0.0-0.2) Sodium Level 139 mmol/L (136-145) Potassium Level 4.0 mmol/L (3.5-5.1) Chloride Level 102 mmol/L (98-107) Carbon Dioxide Level 28 mmol/L (21-32) Anion Gap 9 (6-14) Blood Urea Nitrogen 17 mg/dL (7-20) Creatinine 0.9 mg/dL (0.6-1.0) Estimated GFR (Cockcroft-Gault) 60.1 BUN/Creatinine Ratio 19 (6-20) Glucose Level 114 mg/dL (70-99) H Calcium Level 8.5 mg/dL (8.5-10.1) Magnesium Level 2.2 mg/dL (1.8-2.4) Total Bilirubin 0.3 mg/dL (0.2-1.0) Aspartate Amino Transferase (AST) 42 U/L (15-37) H Alanine Aminotransferase (ALT) 114 U/L (14-59) H Alkaline Phosphatase 147 U/L (46-116) H Total Protein 7.2 g/dL (6.4-8.2) Albumin 2.9 g/dL (3.4-5.0) L Albumin/Globulin Ratio 0.7 (1.0-1.7) L Current Medications: Meds: Current Medications Acetaminophen (Tylenol) 650 mg PRN Q6HRS PRN PO PAIN / TEMP; Start 02/24/17 at 22:30; Stop 02/25/17 at 18:22; Status DC Multi-Ingredient Ointment (Analgesic [place]) 1 rich PRN QID PRN TP MUSCLE PAIN; Start 02/24/17 at 22:30 Al Hydroxide/Mg Hydroxide (Mylanta Plus Xs) 15 ml PRN AFTMEALHC PRN PO DYSPEPSIA; Start 02/24/17 at 22:30 Magnesium Hydroxide (Milk Of Magnesia) 2,400 mg PRN QHS PRN PO CONSTIPATION Last administered on 03/10/17 19:40; Start 02/24/17 at 22:30 Donepezil HCl (Aricept) 5 mg DAILY PO Last administered on 03/13/17 08:21; Start 02/25/17 at 09:00 Olanzapine (ZyPREXA) 5 mg QHS PO Last administered on 02/26/17 19:24; Start at 23:00; Stop 02/27/17 at 21:00; Status DC Sertraline HCl (Zoloft) 25 mg QHS PO Last administered on 03/02/17 20:22; Start 02/24/17 at 23:00; Stop 03/03/17 at 10:26; Status DC Acetaminophen (Tylenol) 650 mg PRN Q4HRS PRN PO PAIN / TEMP; Start 02/24/17 at 23:45 Prenat Multivit/ [place]/Iron/Folic Ac (Multivitamin ) 1 tab DAILY PO Last administered on 03/13/17 08:20; Start 02/25/17 at 09:00 Mirtazapine (Remeron) 7.5 mg QHS PO Last administered on 03/01/17 20:05; Start 02/25/17 at 21:00; Stop 03/02/17 at 18:17; Status DC Atorvastatin Calcium (Lipitor) 20 mg QHS PO Last administered on 03/13/17 21:08 ; Start 02/26/17 at 21:00 Vitamin D (Vitamin D3) 2,000 unit DAILYBFRSUP PO Last administered on 03/13/17 17:34; Start 02/26/17 at 17:00 Risperidone (RisperDAL) 0.25 mg QHS PO Last administered on 02/28/17 20:39; Start 02/27/17 at 21:00; Stop 03/01/17 at 18:20; Status DC Lactase (Lactaid) 3,000 unit PRN Q3HRS PRN PO GI SYMPTOMS Last administered on 03/13/17 08:20; Start 02/28/17 at 18:00; Stop 03/13/17 at 17:25; Status DC Risperidone (RisperDAL) 0.5 mg QHS PO Last administered on 03/12/17 19:42; Start 03/01/17 at 21:00; Stop 03/13/17 at 20:27; Status DC Mirtazapine (Remeron) 15 mg QHS PO Last administered on 03/09/17 20:13; Start 03/02/17 at 21:00; Stop 03/10/17 at 15:56; Status DC Trazodone HCl (Desyrel) 50 mg PRN QHS PRN PO INSOMNIA, MAY REPEAT X1; Start at 18:15 Sertraline HCl (Zoloft) 50 mg QHS PO Last administered on 03/13/17 21:08; Start 03/03/17 at 21:00 Lisinopril (Prinivil) 10 mg DAILY PO Last administered on 03/13/17 08:20; Start 03/10/17 at 15:00 Mirtazapine (Remeron) 7.5 mg QHS PO Last administered on 03/13/17 21:08; Start 03/10/17 at 21:00 Lactase (Lactaid) 3,000 unit TIDBFRMEAL PO ; Start 03/14/17 at 07:30 Risperidone (RisperDAL) 0.25 mg QHS PO Last administered on 03/13/17 21:08; Start 03/13/17 at 21:00 Active Scripts Active Reported Tylenol (Acetaminophen) 325 Mg Tablet 650 Mg PO PRN Q4HRS PRN Zoloft (Sertraline Hcl) 25 Mg Tablet 25 Mg PO QHS Zyprexa (Olanzapine) 5 Mg Tablet 5 Mg PO QHS Tablet ( Vit/Iron Fumarate/Fa) 1 Each Tablet 1 Tab PO DAILY Aricept (Donepezil Hcl) 5 Mg Tablet 5 Mg PO DAILY Diagnosis: Problems: (1) Anxiety disorder (2) Dementia, vascular, with delusions (3) Dementia, vascular, with depression (4) Impulse control disorder (5) Dementia in Alzheimer's disease with delusions (6) Dementia in Alzheimer's disease with depression (7) Bipolar affective, mixed BATSHEVA MARCUS MD Mar 13, 2017 21:20
[2017-03-14] MEDS ORDERED: ATOR20TA58 PO (03:09)
[2017-03-14] MEDS ORDERED: CHOL10003 PO (03:11)
[2017-03-14] MEDS ORDERED: [UNRECOGNIZED DRUG - CODE] PO (03:12)
[2017-03-14] MEDS ORDERED: LISI10TA2 PO (03:13)
[2017-03-14] MEDS ORDERED: MAG30ORA2 PO (03:15)
[2017-03-14] MEDS ORDERED: MAGN2400 PO (03:16)
[2017-03-14] MEDS ORDERED: METH29OI TP (03:17)
[2017-03-14] MEDS ORDERED: MIRT15TA PO (03:18)
[2017-03-14] MEDS ORDERED: SERT50TA PO (03:18)
[2017-03-14] MEDS ORDERED: RISP0.2519 PO (03:20)
[2017-03-14] MEDS ORDERED: TRAZ50TA15 PO (03:21)
[2017-03-14 06:49] VITALS: BP 136/71
[2017-03-14] MEDS ORDERED: MIRT7.5T8 PO (08:10)
[2017-03-14] MEDS: PRENATAL MULTIVITAMIN TABLET. PO SCH (08:20)
[2017-03-14 08:21] VITALS: BP 136/71
[2017-03-14] MEDS: DONEPEZIL HCL 5 MG TABLET. PO SCH (08:21)
[2017-03-14] MEDS: LISINOPRIL 10 MG TABLET PO SCH (08:21)
[2017-03-14] MEDS: LACTASE 3,000 UNIT TABLET PO SCH ×2 (08:22→12:11)
--- NOTE | 2017-03-14 20:53 | PDOC ---
Exam Dionisio Demential Exam: Dionisio Note: Please also refer to the separate dictated note~for this date of service dictated separately.~Patient seen individually. Discussed the patient with Nursing staff reviewed the chart.~Reviewed interim history and current functioning. Reviewed vital signs,~Labs/ Radiology~and current medications noted below. Continue current treatment with the changes noted in the dictated addendum note S/O: This is late entry for date of service 03/12/2017. This note covers elements not covered in my initial note of March 12. I reviewed information from Dr. Ronquillo since he covered for me over the past several days during my vacation. Per nursing reports, the patient has done well at night and better during the day. The patient had some diarrhea due to lactose intolerance. I met with her in her room. She is neatly tucked in bed with the colorful blanket. Quite verbally interactive with me and wanting to know when she will be discharged. Review of Systems: No CV, , Pulmonary, Eye, ENT system symptoms on review. MSE: Oriented toward self situation, short-term memory has some mild deficits. No active psychotic symptoms suicidal or homicidal ideation. Attention span is short. Language function is intact. Labs: Reviewed. Imp: Unchanged from initial note. Plan: Continue current psychotropics and reviewed drug interactions. Risk and benefit ratio favors no change. Assessment: Vital Signs: Vital Signs Date Time Temp Pulse Resp B/P (MAP) Pulse Ox O2 Delivery O2 Flow Rate FiO2 03/14/17 08:21 96 136/71 03/14/17 06:49 98.6 16 96 03/11/17 05:50 Room Air I&O Intake and Output 03/14/17 07:00 Intake Total 840 ml Balance 840 ml Intake Oral 840 ml Current Medications: Meds: Current Medications Acetaminophen (Tylenol) 650 mg PRN Q6HRS PRN PO PAIN / TEMP; Start 02/24/17 at 22:30; Stop 02/25/17 at 18:22; Status DC Multi-Ingredient Ointment (Analgesic [place]) 1 rich PRN QID PRN TP MUSCLE PAIN; Start 02/24/17 at 22:30; Stop 03/14/17 at 12:55; Status DC Al Hydroxide/Mg Hydroxide (Mylanta Plus Xs) 15 ml PRN AFTMEALHC PRN PO DYSPEPSIA; Start 02/24/17 at 22:30; Stop 03/14/17 at 12:55; Status DC Magnesium Hydroxide (Milk Of Magnesia) 2,400 mg PRN QHS PRN PO CONSTIPATION Last administered on 03/10/17 19:40; Start 02/24/17 at 22:30; Stop 03/14/17 at 12:55; Status DC Donepezil HCl (Aricept) 5 mg DAILY PO Last administered on 03/14/17 08:21; Start 02/25/17 at 09:00; Stop 03/14/17 at 12:55; Status DC Olanzapine (ZyPREXA) 5 mg QHS PO Last administered on 02/26/17 19:24; Start at 23:00; Stop 02/27/17 at 21:00; Status DC Sertraline HCl (Zoloft) 25 mg QHS PO Last administered on 03/02/17 20:22; Start 02/24/17 at 23:00; Stop 03/03/17 at 10:26; Status DC Acetaminophen (Tylenol) 650 mg PRN Q4HRS PRN PO PAIN / TEMP; Start 02/24/17 at 23:45; Stop 03/14/17 at 12:55; Status DC Prenat Multivit/ [place]/Iron/Folic Ac (Multivitamin ) 1 tab DAILY PO Last administered on 03/14/17 08:20; Start 02/25/17 at 09:00; Stop 03/14/17 at 12 :55; Status DC Mirtazapine (Remeron) 7.5 mg QHS PO Last administered on 03/01/17 20:05; Start 02/25/17 at 21:00; Stop 03/02/17 at 18:17; Status DC Atorvastatin Calcium (Lipitor) 20 mg QHS PO Last administered on 03/13/17 21:08 ; Start 02/26/17 at 21:00; Stop 03/14/17 at 12:55; Status DC Vitamin D (Vitamin D3) 2,000 unit DAILYBFRSUP PO Last administered on 03/13/17 17:34; Start 02/26/17 at 17:00; Stop 03/14/17 at 12:55; Status DC Risperidone (RisperDAL) 0.25 mg QHS PO Last administered on 02/28/17 20:39; Start 02/27/17 at 21:00; Stop 03/01/17 at 18:20; Status DC Lactase (Lactaid) 3,000 unit PRN Q3HRS PRN PO GI SYMPTOMS Last administered on 03/13/17 08:20; Start 02/28/17 at 18:00; Stop 03/13/17 at 17:25; Status DC Risperidone (RisperDAL) 0.5 mg QHS PO Last administered on 03/12/17 19:42; Start 03/01/17 at 21:00; Stop 03/13/17 at 20:27; Status DC Mirtazapine (Remeron) 15 mg QHS PO Last administered on 03/09/17 20:13; Start 03/02/17 at 21:00; Stop 03/10/17 at 15:56; Status DC Trazodone HCl (Desyrel) 50 mg PRN QHS PRN PO INSOMNIA, JANUARY REPEAT X1; Start at 18:15; Stop 03/14/17 at 12:55; Status DC Sertraline HCl (Zoloft) 50 mg QHS PO Last administered on 03/13/17 21:08; Start 03/03/17 at 21:00; Stop 03/14/17 at 12:55; Status DC Lisinopril (Prinivil) 10 mg DAILY PO Last administered on 03/14/17 08:21; Start 03/10/17 at 15:00; Stop 03/14/17 at 12:55; Status DC Mirtazapine (Remeron) 7.5 mg QHS PO Last administered on 03/13/17 21:08; Start 03/10/17 at 21:00; Stop 03/14/17 at 12:55; Status DC Lactase (Lactaid) 3,000 unit TIDBFRMEAL PO Last administered on 03/14/17 12:11 ; Start 03/14/17 at 07:30; Stop 03/14/17 at 12:55; Status DC Risperidone (RisperDAL) 0.25 mg QHS PO Last administered on 03/13/17 21:08; Start 03/13/17 at 21:00; Stop 7/3/17 at 12:55; Status DC Active Scripts Active Reported Mirtazapine 7.5 Mg Tablet 7.5 Mg PO HS Trazodone Hcl 50 Mg Tablet 50 Mg PO PRN QHS PRN Risperdal (Risperidone) 0.25 Mg Tablet 0.25 Mg PO QHS Zoloft (Sertraline Hcl) 50 Mg Tablet 50 Mg PO QHS Analgesic [place] (Methyl Salicylate/Menthol) 28 Gm Oint...g. 1 Applic TP PRN QID PRN Milk Of Magnesia (Magnesium Hydroxide) 2,400 Mg/10 Ml Oral.susp 2,400 Mg PO PRN QHS PRN Mag-Al Plus Xs Suspension (Mag Hydrox/Al Hydrox/Simeth) 30 Ml Oral.susp 15 Ml PO PRN AFTMEALHC PRN Lisinopril 10 Mg Tablet 10 Mg PO DAILY Lactaid (Lactase) 3,000 Unit Tablet 3,000 Unit PO TIDBFRMEAL Vitamin D3 (Cholecalciferol (Vitamin D3)) 1,000 Unit Tablet 2,000 Unit PO DAILYBFRSUP Atorvastatin Calcium 20 Mg Tablet 20 Mg PO QHS Tylenol (Acetaminophen) 325 Mg Tablet 650 Mg PO PRN Q4HRS PRN Tablet ( Vit/Iron Fumarate/Fa) 1 Each Tablet 1 Tab PO DAILY Aricept (Donepezil Hcl) 5 Mg Tablet 5 Mg PO DAILY BATSHEVA MARCUS MD Mar 14, 2017 20:53
--- NOTE | 2017-03-15 20:15 | PDOC ---
Exam Dionisio Demential Exam: Dionisio Note: Please also refer to the separate dictated note~for this date of service dictated separately.~Patient seen individually. Discussed the patient with Nursing staff reviewed the chart.~Reviewed interim history and current functioning. Reviewed vital signs,~Labs/ Radiology~and current medications noted below. Continue current treatment with the changes noted in the dictated addendum note DATE OF SERVICE: 03/13/2017. PSYCHIATRIC PROGRESS NOTE This is a late entry for Date of Service 03/13/2017 and covers elements not covered in my initial note. I met with the patient at some length in her room. She has been withdrawn, complains of diarrhea. C. diff stool is negative. Otherwise, no CV, , pulmonary, eye, ENT systems symptoms on review. Complains of being somewhat tired. Reliability poor. MENTAL STATUS EXAM: Oriented to herself and situation. Speech coherent has some latency. Abstraction fair. Computation impaired. Language function intact. Mood and affect appears improved. Less psychotic. LABS: Reviewed. IMPRESSION: Unchanged from initial note. Psychotic disorder unspecified. Rule out bipolar 1 disorder, mixed with psychotic features. Cognitive disorder , unspecified. PLAN: Reduce Risperdal from 0.5 mg h.s. to 0.25 mg h.s. Continue rest of the psychotropics unchanged. Adjust as clinically indicated. Possible transition to lower level of care 03/14/2017. Assessment: Vital Signs: Vital Signs Date Time Temp Pulse Resp B/P (MAP) Pulse Ox O2 Delivery O2 Flow Rate FiO2 03/14/17 08:21 96 136/71 03/14/17 06:49 98.6 16 96 03/11/17 05:50 Room Air I&O Intake and Output 03/15/17 07:00 Intake Total 480 ml Balance 480 ml Intake Oral 480 ml Current Medications: Meds: Current Medications Acetaminophen (Tylenol) 650 mg PRN Q6HRS PRN PO PAIN / TEMP; Start 02/24/17 at 22:30; Stop 02/25/17 at 18:22; Status DC Multi-Ingredient Ointment (Analgesic [place]) 1 rich PRN QID PRN TP MUSCLE PAIN; Start 02/24/17 at 22:30; Stop 03/14/17 at 12:55; Status DC Al Hydroxide/Mg Hydroxide (Mylanta Plus Xs) 15 ml PRN AFTMEALHC PRN PO DYSPEPSIA; Start 02/24/17 at 22:30; Stop 03/14/17 at 12:55; Status DC Magnesium Hydroxide (Milk Of Magnesia) 2,400 mg PRN QHS PRN PO CONSTIPATION Last administered on 03/10/17 19:40; Start 02/24/17 at 22:30; Stop 03/14/17 at 12:55; Status DC Donepezil HCl (Aricept) 5 mg DAILY PO Last administered on 03/14/17 08:21; Start 02/25/17 at 09:00; Stop 03/14/17 at 12:55; Status DC Olanzapine (ZyPREXA) 5 mg QHS PO Last administered on 02/26/17 19:24; Start at 23:00; Stop 02/27/17 at 21:00; Status DC Sertraline HCl (Zoloft) 25 mg QHS PO Last administered on 03/02/17 20:22; Start 02/24/17 at 23:00; Stop 03/03/17 at 10:26; Status DC Acetaminophen (Tylenol) 650 mg PRN Q4HRS PRN PO PAIN / TEMP; Start 02/24/17 at 23:45; Stop 03/14/17 at 12:55; Status DC Prenat Multivit/ [place]/Iron/Folic Ac (Multivitamin ) 1 tab DAILY PO Last administered on 03/14/17 08:20; Start 02/25/17 at 09:00; Stop 03/14/17 at 12 :55; Status DC Mirtazapine (Remeron) 7.5 mg QHS PO Last administered on 03/01/17 20:05; Start 02/25/17 at 21:00; Stop 03/02/17 at 18:17; Status DC Atorvastatin Calcium (Lipitor) 20 mg QHS PO Last administered on 03/13/17 21:08 ; Start 02/26/17 at 21:00; Stop 03/14/17 at 12:55; Status DC Vitamin D (Vitamin D3) 2,000 unit DAILYBFRSUP PO Last administered on 03/13/17 17:34; Start 02/26/17 at 17:00; Stop 03/14/17 at 12:55; Status DC Risperidone (RisperDAL) 0.25 mg QHS PO Last administered on 02/28/17 20:39; Start 02/27/17 at 21:00; Stop 03/01/17 at 18:20; Status DC Lactase (Lactaid) 3,000 unit PRN Q3HRS PRN PO GI SYMPTOMS Last administered on 03/13/17 08:20; Start 02/28/17 at 18:00; Stop 03/13/17 at 17:25; Status DC Risperidone (RisperDAL) 0.5 mg QHS PO Last administered on 03/12/17 19:42; Start 03/01/17 at 21:00; Stop 03/13/17 at 20:27; Status DC Mirtazapine (Remeron) 15 mg QHS PO Last administered on 03/09/17 20:13; Start 03/02/17 at 21:00; Stop 03/10/17 at 15:56; Status DC Trazodone HCl (Desyrel) 50 mg PRN QHS PRN PO INSOMNIA, JANUARY REPEAT X1; Start at 18:15; Stop 03/14/17 at 12:55; Status DC Sertraline HCl (Zoloft) 50 mg QHS PO Last administered on 03/13/17 21:08; Start 03/03/17 at 21:00; Stop 03/14/17 at 12:55; Status DC Lisinopril (Prinivil) 10 mg DAILY PO Last administered on 03/14/17 08:21; Start 03/10/17 at 15:00; Stop 03/14/17 at 12:55; Status DC Mirtazapine (Remeron) 7.5 mg QHS PO Last administered on 03/13/17 21:08; Start 03/10/17 at 21:00; Stop 03/14/17 at 12:55; Status DC Lactase (Lactaid) 3,000 unit TIDBFRMEAL PO Last administered on 03/14/17 12:11 ; Start 03/14/17 at 07:30; Stop 03/14/17 at 12:55; Status DC Risperidone (RisperDAL) 0.25 mg QHS PO Last administered on 03/13/17 21:08; Start 03/13/17 at 21:00; Stop 03/14/17 at 12:55; Status DC Active Scripts Active Reported Mirtazapine 7.5 Mg Tablet 7.5 Mg PO HS Trazodone Hcl 50 Mg Tablet 50 Mg PO PRN QHS PRN Risperdal (Risperidone) 0.25 Mg Tablet 0.25 Mg PO QHS Zoloft (Sertraline Hcl) 50 Mg Tablet 50 Mg PO QHS Analgesic [place] (Methyl Salicylate/Menthol) 28 Gm Oint...g. 1 Applic TP PRN QID PRN Milk Of Magnesia (Magnesium Hydroxide) 2,400 Mg/10 Ml Oral.susp 2,400 Mg PO PRN QHS PRN Mag-Al Plus Xs Suspension (Mag Hydrox/Al Hydrox/Simeth) 30 Ml Oral.susp 15 Ml PO PRN AFTMEALHC PRN Lisinopril 10 Mg Tablet 10 Mg PO DAILY Lactaid (Lactase) 3,000 Unit Tablet 3,000 Unit PO TIDBFRMEAL Vitamin D3 (Cholecalciferol (Vitamin D3)) 1,000 Unit Tablet 2,000 Unit PO DAILYBFRSUP Atorvastatin Calcium 20 Mg Tablet 20 Mg PO QHS Tylenol (Acetaminophen) 325 Mg Tablet 650 Mg PO PRN Q4HRS PRN Tablet ( Vit/Iron Fumarate/Fa) 1 Each Tablet 1 Tab PO DAILY Aricept (Donepezil Hcl) 5 Mg Tablet 5 Mg PO DAILY BATSHEVA MARCUS MD Mar 15, 2017 20:15
== END 2017-03-14 12:55 | DRG 884 ==
LOC: ER 18:33 → EEVIPCON 18:33 → ER 21:42 → GEROPSY 21:43
PROVIDERS: ADMIT Psychiatry & Neurology Psychiatry; ATTEND Psychiatry & Neurology Psychiatry
DX: F01.51 Vascular dementia, unspecified severity, with behavioral disturbance (principal); F31.64 Bipolar disorder, current episode mixed, severe, with psychotic features; E78.5 Hyperlipidemia, unspecified; F02.80 Dementia in other diseases classified elsewhere, unspecified severity, without behavioral disturbance, psychotic disturbance, mood disturbance, and anxiety; F41.9 Anxiety disorder, unspecified; F42.9 Obsessive-compulsive disorder, unspecified; F63.9 Impulse disorder, unspecified; G30.9 Alzheimer's disease, unspecified; F60.9 Personality disorder, unspecified; E61.1 Iron deficiency; I10 Essential (primary) hypertension; J44.9 Chronic obstructive pulmonary disease, unspecified; Z91.14 Patient's other noncompliance with medication regimen; Z79.899 Other long term (current) drug therapy; Z88.5 Allergy status to narcotic agent; Z88.0 Allergy status to penicillin; Z88.2 Allergy status to sulfonamides; Z88.8 Allergy status to other drugs, medicaments and biological substances; Z91.011 Allergy to milk products
CPT/HCPCS: 36415; 80048; 80053; 80061; 81001; 82306; 82607; 83036; 83540; 83550; 83735; 84436; 84443; 84480; 85027; 86592; 86593; 87086; 93005; 99285-25